=== PATIENT | male | born 1950 | race Caucasian/White ===

== ENCOUNTER 2019-01-05 17:27 | Inpatient (IN) | payer OTHER, MEDICARE ==
--- NOTE | 2019-01-05 17:39 | PDOC ---
Rapid Medical Evaluation Time Seen by Provider: 01/05/19 17:36 Medical Evaluation: Allergies Allergy/AdvReac Type Severity Reaction Status Date / Time Iodine and Iodide Containing Allergy Verified 12/29/18 14:18 Produc Vital Signs Temp Pulse Resp BP Pulse Ox 98.2 F 86 18 130/60 98 01/05/19 17:32 01/05/19 17:32 01/05/19 17:32 01/05/19 17:32 01/05/19 17:32 01/05/19 17:36 I have performed a brief in-person evaluation of this patient. The patient presents with a chief complaint of: ulcers to feet, sent by Dr. Fernandez, denies fever/vomiting/diarrhea Pertinent physical exam findings: b/l feet wrapped from podiatry I have ordered the following: x-rays, labs The patient will proceed to the ED for further evaluation. Discharge Disposition - Diagnosis Foot ulcer - Referrals - Patient Instructions - Post Discharge Activity
[2019-01-05] MEDS ORDERED: PIPERACILLIN/TAZOB 3.375 GM 3.375 GM in DEXTROSE 5%-WATER - 50 ML IVPB ONE (18:56)
[2019-01-05] MEDS ORDERED: VANCOMYCIN 1,000 MG in DEXTROSE 5%-WATER - 250 ML IVPB ONE (18:57)
--- NOTE | 2019-01-05 19:12 | PDOC ---
Documentation entered by Patrick Bejarano SCRIBE, acting as scribe for Lexi Mitchell MD. Lexi Mitchell MD: This documentation has been prepared by the semajibeDarci Daniel, SCRIBE, under my direction and personally reviewed by me in its entirety. I confirm that the documentation accurately reflects all work, treatment, procedures, and medical decision making performed by me. History of Present Illness - General Chief Complaint: Wound Stated Complaint: SENT BY PCP/PAIN Time Seen by Provider: 01/05/19 17:36 History Source: Patient Exam Limitations: No Limitations - History of Present Illness Initial Comments: 01/05/19 18:57 The patient is a 68 year old male with a past medical history of HTN, ESRD ( TuThSat dialysis), and peripheral vascular disease here today for evaluation of bilateral foot ulcers. The patient reports that he has been following with Dr. Fernandez for about 2 weeks and was sent in today for admission. Patient notes bilateral foot pain. Patient denies headache, lightheadedness. Denies fever, chills. Denies chest pain, shortness of breath. Denies nausea, vomiting, diarrhea, abdominal pain. Allergies: iodine and iodine containing products Surgical history: appendectomy, cholecystectomy, left AV fistula. PCP: Gadiel Bean Past History - Past Medical History Allergies/Adverse Reactions: Allergies Allergy/AdvReac Type Severity Reaction Status Date / Time Iodine and Iodide Containing Allergy Verified 01/05/19 17:36 Produc Home Medications: Ambulatory Orders Acetaminophen [Tylenol .Extra-Strength -] 3 tab PO TID PRN 12/29/18 Albuterol Sulfate Inhaler - [Ventolin HFA Inhaler -] 2 puff IH Q4H PRN 12/29/18 Alprazolam [Xanax] 1 mg PO HS 12/29/18 Aspirin [ASA -] 325 mg PO DAILY 12/29/18 Budesonide/Formeterol Fumarate [SYMBICORT 160/4.5mcg -] 2 puff IH Q4H PRN Calcitriol [Calcitriol -] 0.25 mg PO DAILY 12/29/18 Carvedilol [Coreg -] 12.5 mg PO BID 12/29/18 Gabapentin [Neurontin -] 300 mg PO DAILY 12/29/18 Isosorbide Mononitrate [Isosorbide Mononitrate ER] 30 mg PO DAILY 12/29/18 Naproxen Sodium [Aleve] 2 tab PO DAILY 12/29/18 Simvastatin 40 mg PO DAILY 12/29/18 Tamsulosin HCl [Flomax -] 0.4 mg PO BID 12/29/18 Ibuprofen 800 mg PO TID 10 Days #30 tablet 01/05/19 Asthma: Yes Cardiac Disorders: Yes (CT 2004) COPD: No CHF: Yes Diabetes: No HTN: Yes Hypercholesterolemia: Yes - Surgical History Appendectomy: Yes (Age 31) Cholecystectomy: Yes (2011) - Psycho Social/Smoking Cessation Hx Smoking History: Never smoked Have you smoked in the past 12 months: No Number of Cigarettes Smoked Daily: 10 If you are a former smoker, when did you quit?: 2013 Review of Systems - Review of Systems Able to Perform ROS?: Yes Comments:: 01/05/19 18:57 CONSTITUTIONAL: Absent: fever, chills, diaphoresis, generalized weakness, malaise, loss of appetite HEENT: Absent: rhinorrhea, nasal congestion, throat pain, throat swelling, difficulty swallowing, mouth swelling, ear pain, eye pain, visual Changes CARDIOVASCULAR: Absent: chest pain, syncope, palpitations, irregular heart rate, lightheadedness , peripheral edema RESPIRATORY: Absent: cough, shortness of breath, dyspnea with exertion, orthopnea, wheezing, stridor, hemoptysis GASTROINTESTINAL: Absent: abdominal pain, abdominal distension, nausea, vomiting, diarrhea, constipation, melena, hematochezia GENITOURINARY: Absent: dysuria, frequency, urgency, hesitancy, hematuria, flank pain, genital pain MUSCULOSKELETAL: Absent: myalgia, arthralgia, joint swelling SKIN: +bilateral foot ulcers and pain. Absent: rash, itching, pallor HEMATOLOGIC/IMMUNOLOGIC: Absent: easy bleeding, easy bruising, lymphadenopathy, frequent infections ENDOCRINE: Absent: unexplained weight gain, unexplained weight loss, heat intolerance, cold intolerance NEUROLOGIC: Absent: headache, focal weakness or paresthesias, dizziness, unsteady gait, seizure, mental status changes, bladder or bowel incontinence PSYCHIATRIC: Absent: anxiety, depression, suicidal or homicidal ideation, hallucinations. *Physical Exam - Vital Signs Last Vital Signs Temp Pulse Resp BP Pulse Ox 98.2 F 86 18 130/60 98 01/05/19 17:32 01/05/19 17:32 01/05/19 17:32 01/05/19 17:32 01/05/19 17:32 - Physical Exam Comments: 01/05/19 18:57 GENERAL: +slender Well developed. Awake and alert. No acute distress. HEENT: Normocephalic, atraumatic. PERRLA, EOMI. No conjunctival pallor. Sclera are non- icteric. Moist mucous membranes. Oropharynx is clear. NECK: Supple. Full ROM. No JVD. Carotid pulses 2+ and symmetric, without bruits. No thyromegaly. No lymphadenopathy. CARDIOVASCULAR: Regular rate and rhythm. No murmurs, rubs, or gallops. Distal pulses are 2+ and symmetric. PULMONARY: No evidence of respiratory distress. Lungs clear to auscultation bilaterally. No wheezing, rales or rhonchi. ABDOMINAL: Soft. Non-tender. Non-distended. No rebound or guarding. No organomegaly. Normoactive bowel sounds. MUSCULOSKELETAL Normal range of motion at all joints. No bony deformities or tenderness. No CVA tenderness. EXTREMITIES: + left AV fistula. + 2+ bilateral lower extremity edema. No cyanosis. No clubbing. No calf tenderness. SKIN: +bilateral foot cellulitis. +dorsal left foot ulceration. +infected right toes. Warm and dry. Normal capillary refill. No rashes. No jaundice. NEUROLOGICAL: Alert, awake, appropriate. Cranial nerves 2-12 intact. No deficits to light touch and temperature in face, upper extremities and lower extremities. No motor deficits in the in face, upper extremities and lower extremities. Normoreflexic in the upper and lower extremities. Normal speech. Toes are down- going bilaterally. Gait is normal without ataxia. PSYCHIATRIC: Cooperative. Good eye contact. Appropriate mood and affect. ED Treatment Course - LABORATORY CBC & Chemistry Diagram: 01/05/19 20:55 01/05/19 20:55 - RADIOLOGY Radiology Studies Ordered: Category Date Time Status CHEST X-RAY PORTABLE* [RAD] Stat Radiology 01/05/19 18:55 Ordered Medical Decision Making - Medical Decision Making 01/05/19 18:59 68-year-old male with a history of end-stage renal disease, hypertension , peripheral vascular disease was referred from [facility] for admission. He has bilateral cellulitis in both feet with an extensive ulceration on the big toe of his left foot and ulcers and erythema of his toes on his right foot. He is afebrile Dr. Fernandez for the wound care sent him in for admission Allergies no drug allergies Meds aspirin 81 mg, simvastatin 40 mg, Flomax 4 mg 2 times a day, gabapentin 300 mg daily, alprazolam 1 mg daily, isosorbide 30 mg daily, Coreg 12.52 daily , Ventolin 2 puffs every 4-6 hours as needed, Symbicort 2 puffs, twice daily, calcitriol once a day Tylenol as needed 01/05/19 19:[address] Fernandez has evaluated this patient for his right hallux gangrene and also his left foot arterial ulcers. He started seeing him earlier this month This patient has peripheral vascular disease and has had multiple revascularizations done by his vascular surgeon Dr. Fairbanks at [facility] 01/05/19 19:23 Dr Fernandez called and said that he would like Dr. Tommy Tse to be a product marketing consultant 01/05/19 22:46 Progress note on December [address] Bocanegra r states that he discussed the case with Dr. Tse and various options were presented to the patient. It is noted that he said patient will likely need amputation of the right hallux. They need to evaluate the peripheral vascular flow prior to any planned procedure. Consult placed with Dr. 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
[2019-01-05] MEDS ORDERED: PIPERACILLIN/TAZOB 3.375 GM 3.375 GM/50 ML BAG IVPB ONE (20:29)
[2019-01-05] MEDS ORDERED: ONDANSETRON 4 MG/2 ML VIAL ONE (20:38)
[2019-01-05 21:15] LABS: BASO % 1.3 % (0-2.0); EOS % 4.7 % (0-4.5); HEMATOCRIT 39.5 % (35.4-49); LYMPH % 14.4 % (8-40); MCH 32.8 pg (25.7-33.7); MCHC 32.8 g/dl (32.0-35.9); MEAN CELL VOLUME 99.9 fl (80-96); MEAN PLT VOLUME 9.3 fl (7.5-11.1); NEUT % 69.6 % (42.8-82.8); PLATELET COUNT 180 K/MM3 (134-434); RBC 3.96 M/mm3 (4.00-5.60); RDW 14.8 % (11.9-15.9); WHITE BLOOD COUNT 9.8 K/mm3 (4.0-10.0)
[2019-01-05] MEDS ORDERED: VANCOMYCIN 1 GRAM (PRE-DOCKED) 1,000 MG/250 ML BAG IVPB ONE (21:25)
[2019-01-05 21:49] LABS: ALBUMIN 3.5 g/dl (3.4-5.0); BILIRUBIN,TOTAL 0.6 mg/dL (0.2-1); BLOOD UREA NITROGEN 27.9 mg/dL (7-18); CALCIUM 10.7 mg/dL (8.5-10.1); CREATININE 7.1 mg/dL (0.55-1.3); POTASSIUM 4.7 mmol/L (3.5-5.1); TOT PROT 7.6 g/dl (6.4-8.2)
--- NOTE | 2019-01-05 22:19 | PN ---
Teaching Attending Note Name of Resident: Eliza Ayala ATTENDING PHYSICIAN STATEMENT I saw and evaluated the patient. I reviewed the resident's note and discussed the case with the resident. I agree with the resident's findings and plan as documented. SUBJECTIVE: Patient is a 68 year old man with a PMH of BPH, OR, PVD (s/p stents in legs), Appendectomy, Cholecystectomy, Osteomyelitis, HLD, HTN, ESRD (TuThSat hemodialysis), and Peripheral vascular disease here today for evaluation of bilateral foot ulcers. The patient reports that he has been following with Dr. Fernandez for about 2 weeks and was sent in today for admission. Patient notes bilateral foot pain. Patient denies headache, lightheadedness, fever, chills, chest pain, shortness of breath, nausea, vomiting, diarrhea or abdominal pain. No recent travels or sick contacts. Denies tobacco, alcohol or illicit drug use. FH of OR. OBJECTIVE: Alert Vital Signs Period Temp Pulse Resp BP Sys/Rodas Pulse Ox Last 24 Hr 98.2 F 86 18-18 130/60 98-98 HEENT: No Jaundice, eye redness or discharge, PERRLA, EOMI. Normocephalic, atraumatic. External ears are normal and hearing is grossly intact. No nasal discharge. Neck: Supple, nontender. No palpable adenopathy or thyromegaly. No JVD Chest: Right chest permacath. Good effort. Clear to auscultation and percussion. Heart: Regular. No S3 or rub; 2/6 LARA. Abdomen: Not distended, soft, nontender and no HSM. No rebound or guarding. Normal bowel sounds. Ext: Peripheral pulses intact. Left arm AV fistula with bruit and thrill. Leg edema. Right big toe gangrene. Gangrenous weeping ulcer on left big toe with surrounding erythema and warmth. Skin: Warm and dry. No petechiae, rash or ecchymosis. Neuro: Alert. Oriented x3. CN 2-12 grossly intact. Sensation grossly intact in all four extremities and DTR are symmetric. Psych: Appropriate mood and affect. Good insight. Home Medications Medication Instructions Recorded Acetaminophen [Tylenol 3 tab PO TID PRN 12/29/18 .Extra-Strength -] Albuterol Sulfate Inhaler - 2 puff IH Q4H PRN 12/29/18 [Ventolin HFA Inhaler -] Alprazolam [Xanax] 1 mg PO HS 12/29/18 Aspirin [ASA -] 325 mg PO DAILY 12/29/18 Budesonide/Formeterol Fumarate 2 puff IH Q4H PRN 12/29/18 [SYMBICORT 160/4.5mcg -] Calcitriol [Calcitriol -] 0.25 mg PO DAILY 12/29/18 Carvedilol [Coreg -] 12.5 mg PO BID 12/29/18 Gabapentin [Neurontin -] 300 mg PO DAILY 12/29/18 Isosorbide Mononitrate [Isosorbide 30 mg PO DAILY 12/29/18 Mononitrate ER] Naproxen Sodium [Aleve] 2 tab PO DAILY 12/29/18 Simvastatin 40 mg PO DAILY 12/29/18 Tamsulosin HCl [Flomax -] 0.4 mg PO BID 12/29/18 Ibuprofen 800 mg PO TID 10 Days #30 tablet 01/05/19 Abnormal Lab Results 01/05/19 01/05/19 01/05/19 20:55 20:55 20:55 RBC 3.96 L MCV 99.9 H Eosinophils % 4.7 H PTT (Actin FS) 39.4 H Chloride 96 L BUN 27.9 H Creatinine 7.1 H Calcium 10.7 H ASSESSMENT AND PLAN: 1. Foot ulcers and cellulitis - Wound cultures being sent and will treat with IV vancomycin. Consult Wound care and ID. Provide daily wound care. Get MRI to rule out osteomyelitis. EKG pending. CXR shows cardiomegaly and right chest permacath is in place. Will continue comprehensive care for all of patients comorbid conditions. 2. ESRD - Will consult nephrology to continue thrice weekly hemodialysis. Mild hypercalcemia may be iatrogenic - will hold Calcitriol and all vitamin d analogues. 3. Hypertension - Restart suitable outpatient antihypertensive drugs when clinically appropriate. Revise regimen to ensure [id number] excellent BP control and pet counselor patient on the injurious effects of uncontrolled hypertension. Nonpharmacologic measures to control hypertension like weight loss , salt restriction and exercise discussed. Importance of adherence to treatment regimen and attainment of normotension emphasized. 4. DVT prophylaxis - Heparin 5000u sq tid. 5. Advance directives - Full code
[2019-01-06] MEDS ORDERED: SODIUM CHLORIDE 1,000 ML IV SCH (01:45)
--- NOTE | 2019-01-06 03:21 | HP ---
CHIEF COMPLAINT: bilater foot ulcers PCP: Dr. Gadiel Bean HISTORY OF PRESENT ILLNESS: Pt is a 68 y/o M w/ pmhx of ESRD (10 years on dialysis, //), HTN, PVD, CHF (EF: 38%), and [place] (2004) presenting to ED complaining of worsening bilateral LE toe ulcers. Pt reports Dr. Fernandez, his new manager strategic, referred the patient to the ED for treatment of LE cellulitis and for a sitting MRI since patient cannot lay flat due to pain. Pt reports his ulcers first appeared about 6-8 months ago but have lately been getting worse. Pt saw his vascular surgeon at [place], Dr. Fairbanks, who applied dressings to the patients wounds 2 weeks ago. Per the pt, the vascular surgeon told him the wounds were healing and did not obtain any infectious workup or prescribe antibiotics. Pt reports there has been some serous fluid drainage from his ulcers and endorsed bilateral foot pain rated as 10/10. Pt uses a walker and wheelchair to ambulate. Pt denies fever, chills, JACKSON, SOB, changes in vision, N/V/D, chest pain , Abd pain, or urinary changes. Pt has a chronic history of lumbar spinal stenosis and endorses back pain. Pt has been on dialysis for past 10 years and he has an AV fistula on his left arm (brachio-cephalic?) and a temporary venous port on R side of chest. Pt reports he got the upper arm AV fistula in July after his L sided radiocephalic fistula failed. The new fistula has been used 4-5 times. Pt has had some itching and erythema around his fistula site. Pt went for dialysis Friday and his next session is . His dialysis sessions are 3.5 hrs. and he receives Heparin and Vitamin D during the session. ER course was notable for: (1) pip/tazo 3.375g (2) vanc 1000mg (3) CXR showing cardiomegaly and right chest permacath is in place. Recent Travel: denies PAST MEDICAL HISTORY: ESRD (10 years on dialysis), HTN, PVD, CHF (EF: 38%), and [place] (2004) PAST SURGICAL HISTORY: 4 stents, 2 in each leg (last one placed September 2018); venous port R side of chest Social History: Smoking: Tobacco: Quit in 2004 but smoked 2 cigarettes a day for 37 years Alcohol: occasionally drinks wine/ beer Drugs: none Occupation: Retired but used to work at [employer] Residence: Pt lives with his Fhx: Father: [place] ( at 59 y/o); Mother: none Allergies Contrast dye- makes his "chest feel tight" and skin itchy but reports he does ok with light contrast and Benadryl Iodine and Iodide Containing Produc Allergy (Verified 01/05/19 17:36) HOME MEDICATIONS: Home Medications Medication Instructions Recorded Acetaminophen [Tylenol 3 tab PO TID PRN 12/29/18 .Extra-Strength -] Albuterol Sulfate Inhaler - 2 puff IH Q4H PRN 12/29/18 [Ventolin HFA Inhaler -] Alprazolam [Xanax] 1 mg PO HS 12/29/18 Budesonide/Formeterol Fumarate 2 puff IH Q4H PRN 12/29/18 [SYMBICORT 160/4.5mcg -] Calcitriol [Calcitriol -] 0.25 mg PO DAILY 12/29/18 Carvedilol [Coreg -] 12.5 mg PO BID 12/29/18 Gabapentin [Neurontin -] 300 mg PO DAILY 12/29/18 Isosorbide Mononitrate [Isosorbide 30 mg PO DAILY 12/29/18 Mononitrate ER] Naproxen Sodium [Aleve] 2 tab PO DAILY 12/29/18 Simvastatin 40 mg PO DAILY 12/29/18 Tamsulosin HCl [Flomax -] 0.4 mg PO BID 12/29/18 Aspirin [ASA -] 81 mg PO DAILY 01/06/19 REVIEW OF SYSTEMS CONSTITUTIONAL: Absent: fever, chills, diaphoresis, generalized weakness, malaise, loss of appetite, weight change HEENT: Absent: rhinorrhea, nasal congestion, throat pain, throat swelling, difficulty swallowing, mouth swelling, ear pain, eye pain, visual changes CARDIOVASCULAR: Absent: chest pain, syncope, palpitations, irregular heart rate, lightheadedness , peripheral edema RESPIRATORY: Absent: cough, shortness of breath, dyspnea with exertion, orthopnea, wheezing, stridor, hemoptysis GASTROINTESTINAL: Absent: abdominal pain, abdominal distension, nausea, vomiting, diarrhea, constipation, melena, hematochezia GENITOURINARY: Absent: dysuria, frequency, urgency, hesitancy, hematuria, flank pain, genital pain MUSCULOSKELETAL: back pain Absent: myalgia, arthralgia, joint swelling,, neck pain SKIN: bilateral foot ulcers Absent: rash, itching, pallor HEMATOLOGIC/IMMUNOLOGIC: Absent: easy bleeding, easy bruising, lymphadenopathy, frequent infections ENDOCRINE: Absent: unexplained weight gain, unexplained weight loss, heat intolerance, cold intolerance NEUROLOGIC: paresthesias in bilateral LE Absent: headache, focal weakness or , dizziness, unsteady gait, seizure, mental status changes, bladder or bowel incontinence PSYCHIATRIC: Absent: anxiety, depression, suicidal or homicidal ideation, hallucinations. PHYSICAL EXAMINATION Vital Signs - 24 hr 01/05/19 01/05/19 01/06/19 17:32 22:13 00:25 Temperature 98.2 F Pulse Rate 86 Pulse Rate [ 88 Left Radial] Respiratory 18 18 17 Rate Blood Pressure 130/60 Blood Pressure 139/65 [Left Arm] O2 Sat by Pulse 98 98 Oximetry (%) 01/06/19 01:32 Temperature 97.8 F Pulse Rate 78 Pulse Rate [ Left Radial] Respiratory 18 Rate Blood Pressure 120/56 L Blood Pressure [Left Arm] O2 Sat by Pulse Oximetry (%) GENERAL: Awake, alert, and fully oriented, in no acute distress. HEAD: Normal with no signs of trauma. EYES: Pupils equal, round and reactive to light, extraocular movements intact, sclera anicteric, conjunctiva clear. No lid lag. EARS, NOSE, THROAT: Ears normal, nares patent, oropharynx clear without exudates. Moist mucous membranes. NECK: Normal range of motion, supple without lymphadenopathy, JVD, or masses. LUNGS: Breath sounds equal, clear to auscultation bilaterally. No wheezes, and no crackles. No accessory muscle use. HEART: Regular rate and rhythm, normal S1 and S2, systolic murmur @ L sternal border. Dialyis port at R chest, dressing is c/d/i ABDOMEN: Soft, nontender, not distended, normoactive bowel sounds, no guarding, no rebound, no masses. MUSCULOSKELETAL: Normal range of motion at all joints. No bony deformities or tenderness. No CVA tenderness. UPPER EXTREMITIES: 2+ pulses, warm, well-perfused. No cyanosis. No clubbing. No peripheral edema. AV fistula on LUE (brachio-cephalic?), palpable thrill, some erythema noted in the surrounding area with excoriations (pt attributes to medical tape) LOWER EXTREMITIES: 2+ pulses, warm, well-perfused. No calf tenderness. 1+ pitting edema LLE, trace pitting edema LLE. R foot with dry, necrotic looking ulcer on first toe. L foot with wet looking weeping ulcers near first toe and extending down between first and second toes. Erythema warmth and swelling to the dorsum of the left foot. NEUROLOGICAL: Cranial nerves II-XII intact. PSYCHIATRIC: Cooperative. Good eye contact. Appropriate mood and affect. SKIN: Warm, dry, normal turgor, skin findings as described above. Laboratory Results - last 24 hr 01/05/19 01/05/19 01/05/19 20:55 20:55 20:55 WBC 9.8 RBC 3.96 L Hgb 13.0 Hct 39.5 MCV 99.9 H MCH 32.8 MCHC 32.8 RDW 14.8 Plt Count 180 MPV 9.3 Absolute Neuts (auto) 6.8 Neutrophils % 69.6 Lymphocytes % 14.4 Monocytes % 10.0 Eosinophils % 4.7 H Basophils % 1.3 Nucleated RBC % 0 PTT (Actin FS) Sodium 136 Potassium 4.7 Chloride 96 L Carbon Dioxide 29 Anion Gap 11 BUN 27.9 H Creatinine 7.1 H Est GFR (CKD-EPI)AfAm 8.40 Est GFR (CKD-EPI)NonAf 7.25 Random Glucose 98 Lactic Acid 1.1 Calcium 10.7 H Total Bilirubin 0.6 AST 21 ALT 16 Alkaline Phosphatase 81 Total Protein 7.6 Albumin 3.5 01/05/19 20:55 WBC RBC Hgb Hct MCV MCH MCHC RDW Plt Count MPV Absolute Neuts (auto) Neutrophils % Lymphocytes % Monocytes % Eosinophils % Basophils % Nucleated RBC % PTT (Actin FS) 39.4 H Sodium Potassium Chloride Carbon Dioxide Anion Gap BUN Creatinine Est GFR (CKD-EPI)AfAm Est GFR (CKD-EPI)NonAf Random Glucose Lactic Acid Calcium Total Bilirubin AST ALT Alkaline Phosphatase Total Protein Albumin ASSESSMENT/PLAN: Pt is a 68 y/o M w/ pmhx of ESRD (10 years on dialysis, //), HTN, PVD, CHF (EF: 38%), and [place] (2004) presenting to ED complaining of worsening bilateral LE toe ulcers. # Foot ulcers and cellulitis - F/U wound cultures - IV vancomycin pending wound/ blood cx results - random vanc trough - Consult Wound care/ vascular surgery/ podiatry (Drs. Tse and Jim), appreciate recommendations - Consult ID (Dr. Retana), appreciate recommendations - Provide daily wound care - Get MRI to rule out osteomyelitis - EKG pending - type and screen, coags, EKG, and NPO for now incase pt is to go to OR for debridement or other procedure. # Hypercalcemia - mild, may be iatrogenic - hold Calcitriol and all vitamin d analogues. - f/u PTH # ESRD on HD () - consult nephrology, Dr. Turner, to continue () hemodialysis. - renal dosing for all medications # HTN - resume home meds when clinically appropriate # FEN - - replete PRN - NPO until eval by podiatry/ vascular sx, then Na controlled/ renal diet. # Ppx - DVT: SCDs until pt is evaluated by podiatry and vascular surgery and decision is made about whether pt needs to go to OR, then Heparin 5000u SQ TID #Dispo- admit to med-surg, full code Visit type - Emergency Visit Emergency Visit: Yes ED Registration Date: 01/05/19 Care time: The patient presented to the Emergency Department on the above date and was hospitalized for further evaluation of their emergent condition. - New Patient This patient is new to me today: Yes Date on this admission: 01/06/19 - Critical Care Critical Care patient: No ATTENDING PHYSICIAN STATEMENT I saw and evaluated the patient. I reviewed the resident's note and discussed the case with the resident. I agree with the resident's findings and plan as documented. SUBJECTIVE: OBJECTIVE: ASSESSMENT AND PLAN:
[2019-01-06 04:31] VITALS: BMI 22.8
[2019-01-06] MEDS ORDERED: HEPARIN NA (PORCINE) 5,000 UNITS/ML 1ML VIAL SQ SCH (06:00)
[2019-01-06] MEDS: HEPARIN NA (PORCINE) 5,000 UNITS/ML 1ML VIAL SQ SCH ×3 (06:00→22:15)
[2019-01-06] MEDS ORDERED: oxyCODONE HCL 5 MG TABLET PO PRN (07:50)
[2019-01-06 08:59] LABS: BASO % 0.9 % (0-2.0); EOS % 5.1 % (0-4.5); HEMATOCRIT 37.3 % (35.4-49); HEMOGLOBIN 12.3 GM/dL (11.7-16.9); LYMPH % 13.4 % (8-40); MCH 32.9 pg (25.7-33.7); MCHC 32.9 g/dl (32.0-35.9); MEAN CELL VOLUME 99.8 fl (80-96); MEAN PLT VOLUME 9.3 fl (7.5-11.1); MONO % 11.8 % (3.8-10.2); NEUT % 68.8 % (42.8-82.8); PLATELET COUNT 160 K/MM3 (134-434); RBC 3.74 M/mm3 (4.00-5.60); RDW 14.9 % (11.9-15.9); WHITE BLOOD COUNT 10.2 K/mm3 (4.0-10.0)
--- NOTE | 2019-01-06 09:06 | CONSULT ---
- Consultation REQUESTING PROVIDER: CONSULT REQUEST: We have been asked to surgically evaluate this patient for gangrene/pvd PCP:Magdiel Eldridge HISTORY OF PRESENT ILLNESS: 68 y/o M w/ pmhx ESRD (10 years on dialysis, // ), HTN, PVD s/p b/l le stent placement within the past year (followed by Dr Aaron Schwartz at [facility]), h/o MS (2004), and CHF sent for admission by Dr Fernandez for Le ulcers. Pt reports he has had le ulcers for the past 6-8 months , was followed by his Vascular surgeon who was doing dressing changes (pt unsure what dressings were applied) in the office up until 2 weeks ago when the ulcers worsened. Pt reports he sought out a DPM for specialty foot care. Has not had infectious workup or abx for ulcers. Endorses minimal serous fluid drainage from his ulcers and bilateral foot pain. Reports using a walker and wheelchair to ambulate over the past few weeks as his pain has worsened. Prior to that he was ambulating 1/2 block or less due to claudication. Pt reports recent placement of b/l le stents (?sfa) as well as close follow up and studies which reveal stents are open. Denies fever, chills, SOB, N/V/D, chest pain, rest pain. Of note, pt has been on dialysis for past 10 years and he has an AV fistula on his left arm (brachio-cephalic?) and a temporary venous port on R side of chest. Pt reports he got the upper arm AV fistula in July after his L sided radiocephalic fistula failed. At baseline, pt lives home with . 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 Ambulation is limited lately due to le pain. Quit smoking in 2004, reports he was a social smoker prior. PAST MEDICAL HISTORY: as above PAST SURGICAL HISTORY: 4 stents, 2 in each leg (last one placed September 2018); venous port R side of chest Social History: Smoking: Tobacco: Quit in 2004 but smoked 2 cigarettes a day for 37 years Alcohol: occasionally drinks wine/ beer Drugs: none Home Medications Medication Instructions Recorded Acetaminophen [Tylenol 1 tab PO Q8H PRN 12/29/18 .Extra-Strength -] Albuterol Sulfate Inhaler - 2 puff IH Q4H PRN 12/29/18 [Ventolin HFA Inhaler -] Alprazolam [Xanax] 1 mg PO HS 12/29/18 Budesonide/Formeterol Fumarate 2 puff IH BID PRN 12/29/18 [SYMBICORT 160/4.5mcg -] Calcitriol [Calcitriol -] 0.25 mg PO DAILY 12/29/18 Carvedilol [Coreg -] 12.5 mg PO BID 12/29/18 Gabapentin [Neurontin -] 300 mg PO DAILY 12/29/18 Isosorbide Mononitrate [Isosorbide 30 mg PO DAILY 12/29/18 Mononitrate ER] Naproxen Sodium [Aleve] 2 tab PO DAILY 12/29/18 Simvastatin 40 mg PO DAILY 12/29/18 Tamsulosin HCl [Flomax -] 0.4 mg PO BID 12/29/18 Aspirin [ASA -] 81 mg PO DAILY 01/06/19 Allergies Allergy/AdvReac Type Severity Reaction Status Date / Time Iodine and Iodide Containing Allergy Verified 01/05/19 17:36 Produc REVIEW OF SYSTEMS: CONSTITUTIONAL: Absent: fever, chills CARDIOVASCULAR: Absent: chest pain, syncope RESPIRATORY: Absent: cough, shortness of breath GASTROINTESTINAL: Absent: abdominal pain PHYSICAL EXAM: GENERAL: Awake, alert, and fully oriented, in no acute distress. HEAD: Normal with no signs of trauma. LOWER EXTREMITIES: R foot with approx 2.5x2.5cm eschar at medial aspect of great toe, no purulent drainage expressed. +maceration of skin at intertriginous spaces. L foot with approx 1.5x1.5cm dry eschar over dorsal surface of L toe, no erythema or drainage from wound. + edema and erythema over dorsum of b/l feet from met heads to just below ankle. +ttp over ulcers. Feet warm. 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 No dpa on L Vital Signs Temperature 98.6 F 01/06/19 06:52 Pulse Rate 79 01/06/19 06:52 Respiratory Rate 18 01/06/19 06:52 Blood Pressure 119/63 01/06/19 06:52 O2 Sat by Pulse Oximetry (%) 97 01/06/19 01:35 Lab Results WBC 10.2 K/mm3 (4.0-10.0) H 01/06/19 07:25 RBC 3.74 M/mm3 (4.00-5.60) L 01/06/19 07:25 Hgb 12.3 GM/dL (11.7-16.9) 01/06/19 07:25 Hct 37.3 % (35.4-49) 01/06/19 07:25 MCV 99.8 fl (80-96) H 01/06/19 07:25 MCHC 32.9 g/dl (32.0-35.9) 01/06/19 07:25 RDW 14.9 % (11.9-15.9) 01/06/19 07:25 Plt Count 160 K/MM3 (134-434) 01/06/19 07:25 Sodium 136 mmol/L (136-145) 01/05/19 20:55 Potassium 4.7 mmol/L (3.5-5.1) 01/05/19 20:55 Chloride 96 mmol/L (98-107) L 01/05/19 20:55 Carbon Dioxide 29 mmol/L (21-32) 01/05/19 20:55 Anion Gap 11 MMOL/L (8-16) 01/05/19 20:55 BUN 27.9 mg/dL (7-18) H 01/05/19 20:55 Creatinine 7.1 mg/dL (0.55-1.3) H 01/05/19 20:55 Random Glucose 98 mg/dL (74-106) 01/05/19 20:55 Calcium 10.7 mg/dL (8.5-10.1) H 01/05/19 20:55 A/P: 68 y/o M w/ pmhx ESRD (10 years on dialysis, //), HTN, PVD s/p b/l le stent placement within the past year (followed by Dr Aaron Schwartz at [facility]), h/o MS (2004), and CHF sent for admission by Dr Fernandez for Le ulcers. Pt with dry gangrene/cellulitis in setting of chronic gangrene, known PVD. Vascular consulted for evaluation. CTA recommended, pt refusing. Reports recent vascular imaging and cta at [facility]. States paperwork has been sent over (not in chart, primary team unaware of any faxed paperwork). -Primary team attempting to obtain paperwork from [facility] (need to see recent studies regarding le stents, anatomy/outflow) -Recommend Betadine solution to areas of gangrene, 4x4 gauze between toes -Continue ASA 81mg daily, pt not on Plavix, reports never taking it -Will follow -Care per primary team/podiatry jerry attending Dr Tse
[2019-01-06 09:17] LABS: INR 0.97 (0.83-1.09); PROTHROMBIN TIME (PATIENT) 11.5 SEC (9.7-13.0)
--- NOTE | 2019-01-06 09:20 | PN ---
Progress Note (short form) - Note Progress Note: ID consult dictated 68 yo man with ESRD on HD with PAD and chronic ischemic bilateral foot pain for months he is s/p multiple revascularization attempts with Dr Fairbanks (vascular)) reports at least 2 stents in each leg over last 3 years- most recently 6 weeks ago pain is unabated has dry gangrene of the right big toe and a shallow dry ulcer on the dorasl surface of the left foot both feet are cool no purulence or odor no prior antibiotics admitted for pain control and further vascular and podiatric evaluation-foot appears ischemic at this time with sequelae of dry gangrene and ischemic ulcer see no active infection at this time to continue antibiotics (got vanco/zosyn in ED)-hold further antiibiotics for now will d/w vascular and podiatry Problem List - Problems (1) PVD (peripheral vascular disease) Code(s): I73.9 - PERIPHERAL VASCULAR DISEASE, UNSPECIFIED (2) Gangrene of toe of right foot Code(s): I96 - GANGRENE, NOT ELSEWHERE CLASSIFIED (3) Foot ulcer, left Code(s): L97.529 - NON-PRESSURE CHRONIC ULCER OTH PRT LEFT FOOT W UNSP SEVERITY (4) ESRD (end stage renal disease) on dialysis Code(s): N18.6 - END STAGE RENAL DISEASE; Z99.2 - DEPENDENCE ON RENAL DIALYSIS
[2019-01-06] MEDS: ISOSORBIDE MONONITRATE 30 MG TAB.SR.24H (FP) PO SCH (09:23)
[2019-01-06] MEDS: CARVEDILOL 12.5 MG TABLET (FP) PO SCH ×2 (09:23→23:05)
[2019-01-06] MEDS: TAMSULOSIN HCL 0.4 MG CAP PO SCH ×2 (09:23→23:05)
[2019-01-06] MEDS ORDERED: ALPRAZolam 1 MG TABLET PO PRN (09:25)
[2019-01-06 09:36] LABS: ALBUMIN 3.2 g/dl (3.4-5.0); BILIRUBIN,TOTAL 0.6 mg/dL (0.2-1); BLOOD UREA NITROGEN 31.7 mg/dL (7-18); CALCIUM 10.6 mg/dL (8.5-10.1); MAGNESIUM 2.3 mg/dL (1.8-2.4); PHOSPHOROUS 5.6 mg/dL (2.5-4.9); POTASSIUM 4.7 mmol/L (3.5-5.1); TOT PROT 6.9 g/dl (6.4-8.2)
[2019-01-06 09:41] LABS: CREATININE 7.8 mg/dL (0.55-1.3)
[2019-01-06] MEDS: traMADol HCL 50 MG TABLET PO PRN ×2 (09:49→20:46)
[2019-01-06] MEDS: PROCHLORPERAZINE MALEATE 5 MG TABLET PO PRN ×2 (09:49→20:46)
[2019-01-06] MEDS ORDERED: CALCITRIOL 0.25 MCG CAPSULE (FP) PO SCH (10:00)
[2019-01-06] MEDS ORDERED: VANCOMYCIN 1 GM in D5W (PRE-DOCKED) 1,000 MG/250 ML IVPB SCH (10:00)
[2019-01-06] MEDS ORDERED: morphine SULFATE 4 MG/ML VIAL IVPUSH ONE (10:38)
[2019-01-06] MEDS ORDERED: SODIUM CHLORIDE 250 ML IV PRN (11:50)
--- NOTE | 2019-01-06 11:51 | CONSULT ---
Consultation: REQUESTING PROVIDER: Dr Carlos CONSULT REQUEST: We have been asked to medically evaluate this patient for ESRD. HISTORY OF PRESENT ILLNESS: Pt. is a 68 y.o. M w/ PMHx. of ESRD( ,,) HTN, PVD, CHF (EF 38%) and MS in 2004 presents for non-healing and worsening foot ulcer. Pt. 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 Pt. recently had LUE AV Fistula placed ~3months ago and has used that site as his access site only a few times. He has a R. Chest venous port and is requesting that we use that site for his HD. Pt. also has a non-functioning distal LUE fistula. Pt. endorses b/l lower extremity pain from his feet that Percocet has not helped. Pt. states that he recently had his LLE evaluated by Dr. Fairbanks in [place] and that states that he still has good blood flow. Pt. states that he was not recently on any antibiotics. Pt. endorses compliance with all his medications. Pt. denies any shortness of breath, fever, chills, or any changes in urination or bowel habits. REVIEW OF SYSTEMS: As above PHYSICAL EXAMINATION Vital Signs - 24 hr 01/05/19 01/05/19 01/06/19 17:32 22:13 00:25 Temperature 98.2 F Pulse Rate 86 Pulse Rate [ 88 Left Radial] Respiratory 18 18 17 Rate Blood Pressure 130/60 Blood Pressure 139/65 [Left Arm] O2 Sat by Pulse 98 98 Oximetry (%) 01/06/19 01/06/19 01/06/19 01:30 01:32 01:35 Temperature 97.8 F 97.8 F Pulse Rate 78 78 Pulse Rate [ Left Radial] Respiratory 18 18 Rate Blood Pressure 120/56 L 120/56 L Blood Pressure [Left Arm] O2 Sat by Pulse 97 Oximetry (%) 01/06/19 01/06/19 06:52 09:22 Temperature 98.6 F 98.3 F Pulse Rate 79 89 Pulse Rate [ Left Radial] Respiratory 18 20 Rate Blood Pressure 119/63 144/73 Blood Pressure [Left Arm] O2 Sat by Pulse Oximetry (%) GENERAL: Awake, alert, and fully oriented, in mild distress 2/2 lower extremity pain. HEAD: Normal with no signs of trauma. EYES: Extraocular movements intact, sclera anicteric, conjunctiva clear. EARS, NOSE, THROAT: Ears normal, nares patent, oropharynx clear without exudates. Moist mucous membranes. NECK: Normal range of motion, supple without lymphadenopathy, JVD, or masses. LUNGS: Breath sounds equal, clear to auscultation bilaterally. No wheezes, and no crackles. No accessory muscle use. HEART: Regular rate and rhythm, normal S1 and S2 without murmur ABDOMEN: Soft, nontender, not distended, normoactive bowel sounds, no guarding, no rebound, no masses. MUSCULOSKELETAL: Normal range of motion at all joints. No bony deformities or tenderness. No CVA tenderness. R anterior chest port UPPER EXTREMITIES: 2+ pulses, warm, well-perfused. No cyanosis. No clubbing. No peripheral edema. LUE AVF both proximal an distal. Frills and thrills present on proximal. LOWER EXTREMITIES: 1+ dorsal pedal pulses, warm, well-perfused. No calf tenderness. 1+ edema, tender to palpation. RLE eschar on medial aspect of great toe; LLE dryness, swelling, tenderness to palpation on dorsum xerosis with ?necrosis of NEUROLOGICAL: Cranial nerves II-XII grossly intact. Normal speech. PSYCHIATRIC: Cooperative. Good eye contact. Appropriate mood and affect. SKIN: Warm, dry, normal turgor Laboratory Results - last 24 hr 01/05/19 01/05/19 01/05/19 20:55 20:55 20:55 WBC 9.8 RBC 3.96 L Hgb 13.0 Hct 39.5 MCV 99.9 H MCH 32.8 MCHC 32.8 RDW 14.8 Plt Count 180 MPV 9.3 Absolute Neuts (auto) 6.8 Neutrophils % 69.6 Lymphocytes % 14.4 Monocytes % 10.0 Eosinophils % 4.7 H Basophils % 1.3 Nucleated RBC % 0 ESR PT with INR INR PTT (Actin FS) Sodium 136 Potassium 4.7 Chloride 96 L Carbon Dioxide 29 Anion Gap 11 BUN 27.9 H Creatinine 7.1 H Est GFR (CKD-EPI)AfAm 8.40 Est GFR (CKD-EPI)NonAf 7.25 Random Glucose 98 Lactic Acid 1.1 Calcium 10.7 H Phosphorus Magnesium Total Bilirubin 0.6 AST 21 ALT 16 Alkaline Phosphatase 81 C-Reactive Protein Total Protein 7.6 Albumin 3.5 Blood Type Antibody Screen 01/05/19 01/05/19 01/06/19 20:55 20:55 07:25 WBC 10.2 H RBC 3.74 L Hgb 12.3 Hct 37.3 MCV 99.8 H MCH 32.9 MCHC 32.9 RDW 14.9 Plt Count 160 MPV 9.3 Absolute Neuts (auto) 7.0 Neutrophils % 68.8 Lymphocytes % 13.4 Monocytes % 11.8 H Eosinophils % 5.1 H Basophils % 0.9 Nucleated RBC % 0 ESR PT with INR INR PTT (Actin FS) 39.4 H Sodium Potassium Chloride Carbon Dioxide Anion Gap BUN Creatinine Est GFR (CKD-EPI)AfAm Est GFR (CKD-EPI)NonAf Random Glucose Lactic Acid Calcium Phosphorus Magnesium Total Bilirubin AST ALT Alkaline Phosphatase C-Reactive Protein Total Protein Albumin Blood Type O POSITIVE Antibody Screen 01/06/19 01/06/19 01/06/19 07:25 07:25 07:25 WBC RBC Hgb Hct MCV MCH MCHC RDW Plt Count MPV Absolute Neuts (auto) Neutrophils % Lymphocytes % Monocytes % Eosinophils % Basophils % Nucleated RBC % ESR PT with INR 11.50 INR 0.97 PTT (Actin FS) Sodium 136 Potassium 4.7 Chloride 97 L Carbon Dioxide 31 Anion Gap 7 L BUN 31.7 H Creatinine 7.8 H* Est GFR (CKD-EPI)AfAm 7.50 Est GFR (CKD-EPI)NonAf 6.47 Random Glucose 71 L Lactic Acid Calcium 10.6 H Phosphorus 5.6 H Magnesium 2.3 Total Bilirubin 0.6 AST 11 L ALT 12 L Alkaline Phosphatase 67 C-Reactive Protein 2.0 H Total Protein 6.9 Albumin 3.2 L Blood Type O POSITIVE Antibody Screen Negative 01/06/19 10:00 WBC RBC Hgb Hct MCV MCH MCHC RDW Plt Count MPV Absolute Neuts (auto) Neutrophils % Lymphocytes % Monocytes % Eosinophils % Basophils % Nucleated RBC % ESR 36 H PT with INR INR PTT (Actin FS) Sodium Potassium Chloride Carbon Dioxide Anion Gap BUN Creatinine Est GFR (CKD-EPI)AfAm Est GFR (CKD-EPI)NonAf Random Glucose Lactic Acid Calcium Phosphorus Magnesium Total Bilirubin AST ALT Alkaline Phosphatase C-Reactive Protein Total Protein Albumin Blood Type Antibody Screen Active Medications Home Medications Medication Instructions Recorded Acetaminophen [Tylenol 1 tab PO Q8H PRN 12/29/18 .Extra-Strength -] Albuterol Sulfate Inhaler - 2 puff IH Q4H PRN 12/29/18 [Ventolin HFA Inhaler -] Alprazolam [Xanax] 1 mg PO HS 12/29/18 Budesonide/Formeterol Fumarate 2 puff IH BID PRN 12/29/18 [SYMBICORT 160/4.5mcg -] Calcitriol [Calcitriol -] 0.25 mg PO DAILY 12/29/18 Carvedilol [Coreg -] 12.5 mg PO BID 12/29/18 Gabapentin [Neurontin -] 300 mg PO DAILY 12/29/18 Isosorbide Mononitrate [Isosorbide 30 mg PO DAILY 12/29/18 Mononitrate ER] Naproxen Sodium [Aleve] 2 tab PO DAILY 12/29/18 Simvastatin 40 mg PO DAILY 12/29/18 Tamsulosin HCl [Flomax -] 0.4 mg PO BID 12/29/18 Aspirin [ASA -] 81 mg PO DAILY 01/06/19 Current Medications Acetaminophen (Tylenol -) 650 mg PO Q6H PRN PRN Reason: Fever Or Pain Alprazolam (Xanax) 1 mg PO ONCE PRN PRN Reason: ANXIETY Stop: 01/07/19 09:24 Carvedilol (Coreg -) 12.5 mg PO BID [facility] Last Admin: 01/06/19 09:23 Dose: 12.5 mg Heparin Sodium (Porcine) (Heparin -) 5,000 unit SQ TID [facility] Last Admin: 01/06/19 06:00 Dose: Not Given Isosorbide Mononitrate (Imdur -) 30 mg PO DAILY [facility] Last Admin: 01/06/19 09:23 Dose: 30 mg Prochlorperazine Maleate (Compazine -) 5 mg PO Q4H PRN PRN Reason: NAUSEA AND/OR VOMITING Last Admin: 01/06/19 09:49 Dose: 5 mg Tamsulosin HCl (Flomax -) 0.4 mg PO BID@0830,2200 [facility] Last Admin: 01/06/19 09:23 Dose: 0.4 mg Tramadol HCl (Ultram -) 50 mg PO Q6H PRN PRN Reason: PAIN LEVEL 6-10 Last Admin: 01/06/19 09:49 Dose: 50 mg ASSESSMENT/PLAN: Pt. is a 68 y.o. M w/ PMHx. of ESRD( ,,) HTN, PVD, CHF (EF 38%) and MS in 2004 presents for non-healing and worsening foot ulcer. #ESRD c/w HD on Sat. Pt had HD on Friday, next due tomorrow, will used R. venous port for access Pt. has Hypercalcemia to 10.7, f/u PTH intact c/w Coreg and Imdur for BP control and CHF monitor BMP Dispo: We will continue to follow the patient. Thank you for this consultative opportunity. ATTENDING PHYSICIAN STATEMENT I saw and evaluated the patient. I reviewed the resident's note and discussed the case with the resident. I agree with the resident's findings and plan as documented. SUBJECTIVE: OBJECTIVE: ASSESSMENT AND PLAN:
--- NOTE | 2019-01-06 13:35 | PN ---
Teaching Attending Note Name of Resident: Gadiel Lea (Nephrology) ATTENDING PHYSICIAN STATEMENT I saw and evaluated the patient. I reviewed the resident's note and discussed the case with the resident. I agree with the resident's findings and plan as documented. Renal Pt is a 68 year old male with pmhx of esrd (TTH), htn, chf and pvd who presents for lower ext pain. He denies shortness of breath. He was sent in from wound care. He follows with Dr Ellis. I called and discussed his care with her. pmhx esrd chf htn pvf pshx av fistula allergies iodine family hx denies social hx denies Current Medications Generic Name Dose Route Start Last Admin Trade Name Freq PRN Reason Stop Dose Admin Acetaminophen 650 mg 01/06/19 05:54 01/06/19 14:41 Tylenol - PO 650 mg Q6H PRN Administration Fever Or Pain Alprazolam 1 mg 01/06/19 09:25 Xanax PO 01/07/19 09:24 ONCE PRN ANXIETY Carvedilol 12.5 mg 01/06/19 10:00 01/06/19 09:23 Coreg - PO 12.5 mg BID MIGUEL Administration Heparin Sodium (Porcine) 5,000 unit 01/06/19 06:00 01/06/19 14:45 Heparin - SQ Not Given TID MIGUEL Isosorbide Mononitrate 30 mg 01/06/19 10:00 01/06/19 09:23 Imdur - PO 30 mg DAILY MIGUEL Administration Nystatin 1 applic 01/06/19 22:00 Mycostatin Cream - TP BID MIGUEL Prochlorperazine Maleate 5 mg 01/06/19 07:51 01/06/19 09:49 Compazine - PO 5 mg Q4H PRN Administration NAUSEA AND/OR VOMITING Tamsulosin HCl 0.4 mg 01/06/19 08:45 01/06/19 09:23 Flomax - PO 0.4 mg BID@0830,2200 MIGUEL Administration Tramadol HCl 50 mg 01/06/19 07:51 01/06/19 09:49 Ultram - PO 50 mg Q6H PRN Administration PAIN LEVEL 6-10 Last Vital Signs Temp Pulse Resp BP Pulse Ox 98.5 F 84 20 88/56 L 97 01/06/19 14:00 01/06/19 14:00 01/06/19 14:00 01/06/19 14:00 01/06/19 01:35 cardio s1s2 reg pulm clear GI soft ext plus 1 edema bilateral lower ext ulcers Impression 1. esrd 2. htn 3. pvd 4. chf 5. lower ext ulcers Plan - HD tomorrow - pt requests for catheter to be used - he also wants 3 hrs instead of 3.5 hrs - vascular eval - 3.5 abf 400, revaclear 300 2 k calcium heparin 1000 bolus SRD( ,,) HTN, PVD, CHF (EF 38%) and TX
[2019-01-06] MEDS: ACETAMINOPHEN 325 MG TABLET (FP) PO PRN (14:41)
--- NOTE | 2019-01-06 15:48 | PN ---
Teaching Attending Note Name of Resident: Leslie Refugio ATTENDING PHYSICIAN STATEMENT I saw and evaluated the patient. I reviewed the resident's note and discussed the case with the resident. I agree with the resident's findings and plan as documented. SUBJECTIVE: No fever or chills. reports pain in both feet 11/10 x 6 months . ulcers on L foot with hart drainage. reports L foot erythema is cl imbing up ( can't specify time ) , to ID he stated his feet looked the same with no change) . R foot big toe under skin white color is new per him . No SOB OBJECTIVE: NAD , awake, alert, cooperative CV: RRR, 3/6 LSB murmur. Lungs: CTAB Ext : DP is not palpable on both sides . R big toe with eschar on tip of the toe and whitish doscoloration under skin in area around the base of the nail bed. L foot with erythema on dorsum, and an ulcer on dorsal of big toe. 1+ pitting edema on legs skin: R upper chest catheter with intact skin ASSESSMENT AND PLAN: 68 y/o man with h/o ESRD, OM, PVD s/p stenting in both legs , GERD, HTN, HLP, [place], appendectomy, CCY and BPH and other medical problems who presented with persistent pain in feet and non healing ulcers. 1- B/l feet ulcers. likely vascular ulcers due to poor circulation. questionable infection in feet. - will d/w dr. Fernandez if the R toe findings are new - case was d/w Dr. Retana . - DP was dopplerable bilaterally by surgical PA. - Case d/w Surgical veronica, trial to contact Dr. Schwartz his vascular - records to be requested . 2- H/o ESRD: due to HD tomorrow - elevated ca level. hold cCalcitriol - PTH pending - DC IVF 3- h/o HTn: cont coreg and imdur meds to be confirmed 4- DVT Px : heparin SQ
--- NOTE | 2019-01-06 16:32 | CONS ---
INFECTIOUS DISEASE CONSULTATION DATE OF CONSULTATION: DATE OF DICTATION: 01/06/2019 REQUESTED BY: The hospitalist service. HISTORY OF PRESENT ILLNESS: This is a 68-year-old man who is followed by a vascular surgeon at [place]. He has had multiple stents, he reports, to both his legs for the last 3 years and he has been troubled by bilateral leg pain which has been unremitting. He self-referred himself to our wound care clinic to see one of the podiatrists. He has a long-standing dry gangrene of the right big toe of his right foot and he has a left arterial ulcer of the left leg. His most recent angioplasty and stent, he reports, was 6 weeks ago for the right leg. He has a history of dialysis. He has been on dialysis for 10 years, originally via a fistula in his left forearm. He now has a fistula in his left upper arm, as well as a PermCath. He denies any fevers or chills and he notes he has chronic pain. He appears quite frustrated due to the pain. He has no drainage from his feet which have no odor. ALLERGIES: He is allergic to IODINE. PAST MEDICAL HISTORY: Notable for dialysis; hypertension, but he states he no longer takes medicine for the high blood pressure; peripheral vascular disease; congestive heart failure; and he is status post MN. He has a history of cardiomyopathy and a prior bladder fistula. SURGICAL HISTORY: Notable for the stents in his leg. He has a PermCath. He is status post appendectomy and cholecystectomy in the past and he has had multiple angioplasties to both his legs. SOCIAL HISTORY: He is a former smoker; quit in 2004. Occasional wine or beer. No substance use. 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 FAMILY HISTORY: Notable for coronary artery disease. MEDICATIONS AT HOME: Include albuterol inhaler, Xanax, Symbicort, Coreg, Neurontin, isosorbide, Aleve, simvastatin, Flomax, and aspirin. REVIEW OF SYSTEMS: There are no fevers or chills. He notes the chronic pain in his feet, as well as the chronic ulcers on his feet. PHYSICAL EXAMINATION: General: He is awake and alert. Vital Signs: Temperature is 98.3, pulse of 89, blood pressure 144/73, his respiratory rate is 20. He weighs 70 kg. HEENT: He is normocephalic. His eyes are anicteric. Neck: Supple. Lungs: Clear to auscultation. Heart: Regular rate and rhythm. Abdomen: Soft. Nontender. Extremities: Cool. He has dry gangrene of the big toe of his right foot. He has a shallow ischemic ulcer without any drainage on the dorsum of his left foot. There is no associated erythema. In fact, both his feet are cool. I cannot feel any pulses. There is no purulence and there is no odor. He has not been on antibiotics as an outpatient. LABORATORY DATA: White count is 10.2, hemoglobin 12.3, platelets are 160. His sedimentation rate is 36. His BUN is 31 and creatinine 7.8 with a CRP of 3. Cultures are pending of his blood and of the dorsum of his foot though he has no drainage. X-rays of his foot were done in the emergency room. Right foot shows vascular calcification and some arthritic changes in the left foot. In summary, this is a 68-year-old man, admitted for pain control and further vascular and podiatric evaluation of his feet. They appear ischemic at this time with sequelae of dry gangrene and the ischemic ulcer. I see no active infection, at this time, to continue antibiotics. He received vancomycin and Zosyn in the ER. Would hold further antibiotics for now. Case was discussed with Podiatry who has spoken with Vascular to further evaluate the patient. As well, they are reaching out to his vascular surgeon. NITO FAITH M.D. [id number]
--- NOTE | 2019-01-06 16:50 | CONSULT ---
Consult Consult Specialty:: PODIATRY Reason for Consultation:: b/l gangrenous changes R > L - History of Present Illness Chief Complaint: 68 y/o male with Right foot worsening gangrene. History of Present Illness: Seen and evaluated. Patient has a history of multiple stent placemetn in legs due to severe impairment of blood flow. Patient was being seen by my partner Dr. Fernandez and was sent into the hospital for right hallux gangrene although he also has changes to left hallux as well. Patient very irritable and is continously asking for pain medication during exam. States he had all records faxed over although is unsure what a CTA is. States anything to be done has to be cleared by his other vascular surgeon in the city. - Alcohol/Substance Use Hx Alcohol Use: No - Smoking History Smoking history: Never smoked Have you smoked in the past 12 months: No Aproximately how many cigarettes per day: 10 If you are a former smoker, when did you quit?: 2013 Home Medications - Allergies Allergies/Adverse Reactions: Allergies Allergy/AdvReac Type Severity Reaction Status Date / Time Iodine and Iodide Containing Allergy Verified 01/05/19 17:36 Produc - Home Medications Home Medications: Ambulatory Orders Acetaminophen [Tylenol .Extra-Strength -] 1 tab PO Q8H PRN 12/29/18 Albuterol Sulfate Inhaler - [Ventolin HFA Inhaler -] 2 puff IH Q4H PRN 12/29/18 Alprazolam [Xanax] 1 mg PO HS 12/29/18 Budesonide/Formeterol Fumarate [SYMBICORT 160/4.5mcg -] 2 puff IH BID PRN Calcitriol [Calcitriol -] 0.25 mg PO DAILY 12/29/18 Carvedilol [Coreg -] 12.5 mg PO BID 12/29/18 Gabapentin [Neurontin -] 300 mg PO DAILY 12/29/18 Isosorbide Mononitrate [Isosorbide Mononitrate ER] 30 mg PO DAILY 12/29/18 Naproxen Sodium [Aleve] 2 tab PO DAILY 12/29/18 Simvastatin 40 mg PO DAILY 12/29/18 Tamsulosin HCl [Flomax -] 0.4 mg PO BID 12/29/18 Aspirin [ASA -] 81 mg PO DAILY 01/06/19 Review of Systems - Review of Systems Integumentary: reports: Bruising, Change in Color (DP/PT non palapbe bl, gross discoloration in feet b/l, right hallux with bluish tint throughout and gangrenous changes dorsally on the foot, no drainage, no erythema, left foot with erythema dorsally and mild gangrenous changes to the hallux of left as well , mild serous drainage noted in 1st interspace, pain on palpation b/l) Physical Exam Vital Signs: Vital Signs Temperature 98.5 F 01/06/19 14:00 Pulse Rate 84 01/06/19 14:00 Respiratory Rate 20 01/06/19 14:00 Blood Pressure 88/56 L 01/06/19 14:00 O2 Sat by Pulse Oximetry (%) 97 01/06/19 01:35 Labs: CBC, BMP 01/06/19 07:25 01/06/19 07:25 Assessment/Plan 68 y/o male with PAD with b/l gangrenous changes with most severe being right hallux. Evaluated and reviewed Patient constantly asking for percocet during exam even though had Morphine earlier which did not help; appears with drug seeking behavior will have nurse reach out to hospitalist for pain control although would be wary to give too much Patient refusing CTA per vascular although upon discussion and explanation of the test patient does not know if it was done Says all information was faxed over, but nothing received Worsening gangrene and would need amputation but I am highly doubtful patient will allow for such amputation to happen after discussion with patient although complete work up should be done and recommendation made after Will likely require new CTA and then if flow is established can discuss amputation with the patient He demands all testing be cleared by his vascular surgeon prior Will follow betadine DSD to the wounds.
--- NOTE | 2019-01-06 18:11 | PN ---
Physical Exam: SUBJECTIVE: Patient seen and examined 68 M w/ pmhx of ESRD (10 years on dialysis, //), HTN, PVD, CHF (EF: 38%), ND presented w/ worsening bilateral LE toe ulcers, worse on the left than the right. Currently, pt has pain and difficult walking on his leg. Pt is able to move his toes and legs but is very sensitive to touch. Pt is afebrile and has no other c/o. Denies f/c/n/v/d/sob/chest pain. OBJECTIVE: Vital Signs Period Temp Pulse Resp BP Sys/Rodas Pulse Ox Last 24 Hr 97.8 F-98.6 F 78-89 17-20 88-144/56-73 97-98 GENERAL: The patient is awake, alert, and fully oriented, in no acute distress. EYES: PERRL, extraocular movements intact, ENT: Eoropharynx clear without exudates, moist mucous membranes. NECK: full range of motion, supple. LUNGS: Breath sounds equal, clear to auscultation bilaterally, no wheezes, no crackles HEART: Regular rate and rhythm, S1, S2 without murmur, rub or gallop. ABDOMEN: Soft, nontender, nondistended, normoactive bowel sounds, no guarding, EXTREMITIES: 2+ pulses, warm, well-perfused, no edema. LLE: swollen, warm, erythematous, appears to have pus drainage. RLE necrotic looking ulcer/eshcar on first toe. UE: Left side has the fistula for dialysis. Right chest has a dialysis port. NEUROLOGICAL: Cranial nerves II through XII grossly intact. PSYCH: Normal mood, normal affect. SKIN: Warm, Laboratory Results - last 24 hr CBC,CMP WBC 10.2 K/mm3 (4.0-10.0) H 01/06/19 07:25 RBC 3.74 M/mm3 (4.00-5.60) L 01/06/19 07:25 Hgb 12.3 GM/dL (11.7-16.9) 01/06/19 07:25 Hct 37.3 % (35.4-49) 01/06/19 07:25 MCV 99.8 fl (80-96) H 01/06/19 07:25 MCH 32.9 pg (25.7-33.7) 01/06/19 07:25 MCHC 32.9 g/dl (32.0-35.9) 01/06/19 07:25 RDW 14.9 % (11.9-15.9) 01/06/19 07:25 Plt Count 160 K/MM3 (134-434) 01/06/19 07:25 MPV 9.3 fl (7.5-11.1) 01/06/19 07:25 Absolute Neuts (auto) 7.0 K/mm3 (1.5-8.0) 01/06/19 07:25 Neutrophils % 68.8 % (42.8-82.8) 01/06/19 07:25 Lymphocytes % 13.4 % (8-40) 01/06/19 07:25 Monocytes % 11.8 % (3.8-10.2) H 01/06/19 07:25 Eosinophils % 5.1 % (0-4.5) H 01/06/19 07:25 Basophils % 0.9 % (0-2.0) 01/06/19 07:25 Nucleated RBC % 0 % (0-0) 01/06/19 07:25 ESR 36 mm/hr (0-20) H 01/06/19 10:00 Sodium 136 mmol/L (136-145) 01/06/19 07:25 Potassium 4.7 mmol/L (3.5-5.1) 01/06/19 07:25 Chloride 97 mmol/L (98-107) L 01/06/19 07:25 Carbon Dioxide 31 mmol/L (21-32) 01/06/19 07:25 Anion Gap 7 MMOL/L (8-16) L 01/06/19 07:25 BUN 31.7 mg/dL (7-18) H 01/06/19 07:25 Creatinine 7.8 mg/dL (0.55-1.3) H* 01/06/19 07:25 Est GFR (CKD-EPI)AfAm 7.50 01/06/19 07:25 Est GFR (CKD-EPI)NonAf 6.47 01/06/19 07:25 Random Glucose 71 mg/dL (74-106) L 01/06/19 07:25 Lactic Acid 1.1 mmol/L (0.4-2.0) 01/05/19 20:55 Calcium 10.6 mg/dL (8.5-10.1) H 01/06/19 07:25 Phosphorus 5.6 mg/dL (2.5-4.9) H 01/06/19 07:25 Magnesium 2.3 mg/dL (1.8-2.4) 01/06/19 07:25 Total Bilirubin 0.6 mg/dL (0.2-1) 01/06/19 07:25 AST 11 U/L (15-37) L 01/06/19 07:25 ALT 12 U/L (13-61) L 01/06/19 07:25 Alkaline Phosphatase 67 U/L (45-117) 01/06/19 07:25 C-Reactive Protein 2.0 MG/DL (0.00-0.3) H 01/06/19 07:25 Total Protein 6.9 g/dl (6.4-8.2) 01/06/19 07:25 Albumin 3.2 g/dl (3.4-5.0) L 01/06/19 07:25 Active Medications Current Medications Acetaminophen (Tylenol -) 650 mg PO Q6H PRN PRN Reason: Fever Or Pain Last Admin: 01/06/19 14:41 Dose: 650 mg Alprazolam (Xanax) 1 mg PO ONCE PRN PRN Reason: ANXIETY Stop: 01/07/19 09:24 Carvedilol (Coreg -) 12.5 mg PO BID [facility] Last Admin: 01/06/19 09:23 Dose: 12.5 mg Heparin Sodium (Porcine) (Heparin -) 5,000 unit SQ TID [facility] Last Admin: 01/06/19 14:45 Dose: Not Given Heparin Sodium (Porcine) (Heparin -) 1,000 unit IVPUSH ONCE ONE Stop: 01/07/19 16:48 Sodium Chloride (Normal Saline -) 250 mls @ 3,000 mls/hr IV PRN PRN PRN Reason: Hypotension during Dialysis Stop: 01/07/19 16:47 Isosorbide Mononitrate (Imdur -) 30 mg PO DAILY [facility] Last Admin: 01/06/19 09:23 Dose: 30 mg Nystatin (Mycostatin Cream -) 1 applic TP BID [facility] Prochlorperazine Maleate (Compazine -) 5 mg PO Q4H PRN PRN Reason: NAUSEA AND/OR VOMITING Last Admin: 01/06/19 09:49 Dose: 5 mg Tamsulosin HCl (Flomax -) 0.4 mg PO BID@0830,2200 [facility] Last Admin: 01/06/19 09:23 Dose: 0.4 mg Tramadol HCl (Ultram -) 50 mg PO Q6H PRN PRN Reason: PAIN LEVEL 6-10 Last Admin: 01/06/19 09:49 Dose: 50 mg Home Medications Medication Instructions Recorded Acetaminophen [Tylenol 1 tab PO Q8H PRN 12/29/18 .Extra-Strength -] Albuterol Sulfate Inhaler - 2 puff IH Q4H PRN 12/29/18 [Ventolin HFA Inhaler -] Alprazolam [Xanax] 1 mg PO HS 12/29/18 Budesonide/Formeterol Fumarate 2 puff IH BID PRN 12/29/18 [SYMBICORT 160/4.5mcg -] Calcitriol [Calcitriol -] 0.25 mg PO DAILY 12/29/18 Carvedilol [Coreg -] 12.5 mg PO BID 12/29/18 Gabapentin [Neurontin -] 300 mg PO DAILY 12/29/18 Isosorbide Mononitrate [Isosorbide 30 mg PO DAILY 12/29/18 Mononitrate ER] Naproxen Sodium [Aleve] 2 tab PO DAILY 12/29/18 Simvastatin 40 mg PO DAILY 12/29/18 Tamsulosin HCl [Flomax -] 0.4 mg PO BID 12/29/18 Aspirin [ASA -] 81 mg PO DAILY 01/06/19 Microbiology 01/05/19 21:43 Foot - Left Dorsum Gram Stain - Final ASSESSMENT/PLAN: 68 M w/ pmhx of ESRD (10 years on dialysis, //), HTN, PVD, CHF (EF: 38%), ND presented w/ worsening bilateral LE toe ulcers, worse on the left than the right likely 2/2 to infection v/s chronic foot ulcer #Left Foot ulcer and pain r/o cellulitis vs chronic foot ulcer MRI of the foot ordered- r/o osteo Pain control- morphine, xanax(home med), oxycodone- administer before MRI Abx started- random vanc 17.3- will stop as per ID Podiatry- Dr. Hernandez and ID reports there is no signs of infection and this is likely a chronic ischemic changes Nystatin cream ESR normal As per vascular- betadine in areas of gangrene and gauze b/w toes As per podiatry- CTA of the leg- pt refuses- Will discuss with pt tomorrow Debridement necessary- w/ discuss with Podiatry #Hypercalcemia hold Calcitriol and all vitamin d analogues. f/u PTH- pending #ESRD HD () Nephro consulted- Dr. Turner, to continue () hemodialysis. As per nephro HD tomorrow Pt wants 3 hrs instead of 3.5 hrs 3.5 abf 400, revaclear 300 2 k calcium heparin 1000 bolus #HTN Hold home meds for now #FEN replete PRN low sodium diet # Ppx DVT: SCDs (consider heparin sq?) #Dispo- f/u HD, f/u podiatry and vascular, get results from [facility] Visit type - Emergency Visit Emergency Visit: Yes ED Registration Date: 01/05/19 Care time: The patient presented to the Emergency Department on the above date and was hospitalized for further evaluation of their emergent condition. - New Patient This patient is new to me today: Yes Date on this admission: 01/07/19 - Critical Care Critical Care patient: No - Discharge Referral Referred to [facility] Med P.C.: No ATTENDING PHYSICIAN STATEMENT I saw and evaluated the patient. I reviewed the resident's note and discussed the case with the resident. I agree with the resident's findings and plan as documented. SUBJECTIVE: OBJECTIVE: ASSESSMENT AND PLAN:
[2019-01-06] MEDS ORDERED: GABAPENTIN 300 MG CAPSULE (FP) PO ONE (22:18)
[2019-01-06] MEDS: NYSTATIN 100,000 UNIT/GM TOPICAL CREAM 15 GM TUBE TP SCH (23:05)
[2019-01-07] MEDS: HEPARIN NA (PORCINE) 5,000 UNITS/ML 1ML VIAL SQ SCH ×3 (05:11→23:12)
[2019-01-07] MEDS: traMADol HCL 50 MG TABLET PO PRN (05:28)
[2019-01-07] MEDS: PROCHLORPERAZINE MALEATE 5 MG TABLET PO PRN (05:33)
[2019-01-07] MEDS: ACETAMINOPHEN 325 MG TABLET (FP) PO PRN (07:53)
[2019-01-07] MEDS: TAMSULOSIN HCL 0.4 MG CAP PO SCH ×2 (07:53→23:21)
[2019-01-07 08:40] LABS: EOS % 5.2 % (0-4.5); HEMATOCRIT 35.8 % (35.4-49); HEMOGLOBIN 11.7 GM/dL (11.7-16.9); LYMPH % 16.9 % (8-40); MCH 32.7 pg (25.7-33.7); MCHC 32.8 g/dl (32.0-35.9); MEAN CELL VOLUME 99.8 fl (80-96); MEAN PLT VOLUME 9.2 fl (7.5-11.1); NEUT % 63.9 % (42.8-82.8); PLATELET COUNT 160 K/MM3 (134-434); RBC 3.59 M/mm3 (4.00-5.60); RDW 14.8 % (11.9-15.9); WHITE BLOOD COUNT 8.1 K/mm3 (4.0-10.0)
[2019-01-07 09:16] LABS: ALBUMIN 3.3 g/dl (3.4-5.0); BILIRUBIN,TOTAL 0.6 mg/dL (0.2-1); BLOOD UREA NITROGEN 38.1 mg/dL (7-18); CALCIUM 10.5 mg/dL (8.5-10.1); POTASSIUM 4.7 mmol/L (3.5-5.1); TOT PROT 6.9 g/dl (6.4-8.2)
[2019-01-07 09:23] LABS: CREATININE 9.7 mg/dL (0.55-1.3)
[2019-01-07] MEDS ORDERED: CEFAZOLIN 1 GM in DEXTROSE 5%-WATER - 50 ML IVPB SCH (10:00)
--- NOTE | 2019-01-07 10:41 | PN ---
Progress Note (short form) - Note Progress Note: Vascular surgery I spoke to the vascular team at [place]. they said that pt's circulation is maximized to the best it can. VAscular team does not reccommend intervention on the foot, because the intervention might not heal. No intervention from vascular surgery needed here. Pt has gangrene of right great toe. Stable. No drainage. NO need for CTA CAn do MRI if we are ruling out Osteo. If positive pt can get antibiotics during HD. Will send up Hyperbaric team to do consult. FAmily wants to do HBO Spoke to pt and his at bedside in HD Tommy Tse DO
[2019-01-07 11:54] LABS: HEMATOCRIT 35.3 % (35.4-49); HEMOGLOBIN 11.6 GM/dL (11.7-16.9); MCH 32.3 pg (25.7-33.7); MCHC 32.7 g/dl (32.0-35.9); MEAN CELL VOLUME 98.8 fl (80-96); PLATELET COUNT 160 K/MM3 (134-434); RBC 3.58 M/mm3 (4.00-5.60); RDW 14.7 % (11.9-15.9); WHITE BLOOD COUNT 8.6 K/mm3 (4.0-10.0)
[2019-01-07] MEDS ORDERED: HEPARIN NA (PORCINE) 5,000 UNITS/ML 1ML VIAL IVPUSH ONE (12:00)
[2019-01-07 12:25] LABS: BLOOD UREA NITROGEN 39.5 mg/dL (7-18); CALCIUM 10.5 mg/dL (8.5-10.1); POTASSIUM 4.8 mmol/L (3.5-5.1)
--- NOTE | 2019-01-07 12:40 | EKG ---
Test Reason : Blood Pressure : / mmHG Vent. Rate : 077 BPM Atrial Rate : 077 BPM P-R Int : 160 ms QRS Dur : 094 ms QT Int : 378 ms P-R-T Axes : 048 -07 063 degrees QTc Int : 427 ms SINUS RHYTHM WITH OCCASIONAL PREMATURE VENTRICULAR COMPLEXES INFERIOR INFARCT , AGE UNDETERMINED ANTERIOR INFARCT , AGE UNDETERMINED ABNORMAL ECG NO PREVIOUS ECGS AVAILABLE Confirmed by ROB VELASCO MD ([id number]) on 01/07/2019 12:40:15 PM Referred By: Confirmed By:ROB VELASCO MD
[2019-01-07 12:44] LABS: CREATININE 9.9 mg/dL (0.55-1.3)
--- NOTE | 2019-01-07 13:42 | PN ---
Progress Note (short form) - Note Progress Note: PODIATRY NOTE 68 y/o male with right foot dry gangrenous changes, worrisome concerns for left foot osteo. Podiatry also spoke to surgeon and in agreement with. Dr. Hernandez not they recommend no intervention Flow is maximized but will likely not heal any surgical wounds. From podiatry standpoint patients wound are stable If positive for osteo can treat with abx during dialysis per ID recc Discussed f/u with patient given wounds; i would recc f/u with vascular surgeon in [place] given they are guiding main treatment plan Can follow up with podiatry in wound care center as needed Will follow as needed.
--- NOTE | 2019-01-07 14:03 | PN ---
Progress Note, Physician History of Present Illness: Pt seen and examined at bedside. He is tolerating HD. - Current Medication List Current Medications: Active Medications Acetaminophen (Tylenol -) 650 mg PO Q6H PRN PRN Reason: Fever Or Pain Last Admin: 01/07/19 07:53 Dose: 650 mg Carvedilol (Coreg -) 12.5 mg PO BID [facility] Last Admin: 01/06/19 23:05 Dose: 12.5 mg Heparin Sodium (Porcine) (Heparin -) 5,000 unit SQ TID [facility] Last Admin: 01/07/19 05:11 Dose: Not Given Cefazolin Sodium 1 gm/ (Dextrose) 50 mls @ 100 mls/hr IVPB DAILY [facility] Isosorbide Mononitrate (Imdur -) 30 mg PO DAILY [facility] Last Admin: 01/06/19 09:23 Dose: 30 mg Nystatin (Mycostatin Cream -) 1 applic TP BID [facility] Last Admin: 01/06/19 23:05 Dose: 1 applic Prochlorperazine Maleate (Compazine -) 5 mg PO Q4H PRN PRN Reason: NAUSEA AND/OR VOMITING Last Admin: 01/07/19 05:33 Dose: 5 mg Tamsulosin HCl (Flomax -) 0.4 mg PO BID@0830,2200 [facility] Last Admin: 01/07/19 07:53 Dose: 0.4 mg Tramadol HCl (Ultram -) 50 mg PO Q6H PRN PRN Reason: PAIN LEVEL 6-10 Last Admin: 01/07/19 05:28 Dose: 50 mg - Objective Vital Signs: Vital Signs Temperature 97.2 F L 01/07/19 10:20 Pulse Rate 82 01/07/19 12:10 Respiratory Rate 18 01/07/19 12:10 Blood Pressure 92/60 01/07/19 12:10 O2 Sat by Pulse Oximetry (%) 97 01/06/19 21:00 Constitutional: Yes: Calm Eyes: Yes: Conjunctiva Clear HENT: Yes: Atraumatic Neck: Yes: Supple Cardiovascular: Yes: S1, S2 Respiratory: Yes: CTA Bilaterally Gastrointestinal: Yes: Soft Genitourinary: Yes: WNL Edema: Yes Edema: LLE: 1+, RLE: 1+ Wound/Incision: Yes: Open to air Neurological: Yes: Oriented Psychiatric: Yes: Oriented Labs: CBC, BMP 01/07/19 10:30 01/07/19 10:30 INR, PTT INR 0.97 (0.83-1.09) 01/06/19 07:25 Assessment/Plan Current Medications Generic Name Dose Route Start Last Admin Trade Name Freq PRN Reason Stop Dose Admin Acetaminophen 650 mg 01/06/19 05:54 01/07/19 07:53 Tylenol - PO 650 mg Q6H PRN Administration Fever Or Pain Carvedilol 12.5 mg 01/06/19 10:00 01/06/19 23:05 Coreg - PO 12.5 mg BID [facility] Administration Heparin Sodium (Porcine) 5,000 unit 01/06/19 06:00 01/07/19 05:11 Heparin - SQ Not Given TID [facility] Cefazolin Sodium 1 gm/ 50 mls @ 100 mls/hr 01/07/19 10:00 Dextrose IVPB DAILY [facility] Isosorbide Mononitrate 30 mg 01/06/19 10:00 01/06/19 09:23 Imdur - PO 30 mg DAILY [facility] Administration Nystatin 1 applic 01/06/19 22:00 01/06/19 23:05 Mycostatin Cream - TP 1 applic BID [facility] Administration Prochlorperazine Maleate 5 mg 01/06/19 07:51 01/07/19 05:33 Compazine - PO 5 mg Q4H PRN Administration NAUSEA AND/OR VOMITING Tamsulosin HCl 0.4 mg 01/06/19 08:45 01/07/19 07:53 Flomax - PO 0.4 mg BID@0830,2200 [facility] Administration Tramadol HCl 50 mg 01/06/19 07:51 01/07/19 05:28 Ultram - PO 50 mg Q6H PRN Administration PAIN LEVEL 6-10 Impression 1. esrd 2. htn 3. pvd 4. chf 5. lower ext ulcers Plan - HD today - renal diet - vascular follow up - wound care - pt requests for catheter to be used and he also wants 3 hrs instead of 3.5 hrs - 3.5 abf 400, revaclear 300 2 k calcium heparin 1000 bolus
[2019-01-07] MEDS: CARVEDILOL 12.5 MG TABLET (FP) PO SCH ×2 (14:21→23:21)
[2019-01-07] MEDS: ISOSORBIDE MONONITRATE 30 MG TAB.SR.24H (FP) PO SCH (14:22)
[2019-01-07] MEDS ORDERED: ceFAZolin SODIUM 1 GM VIAL ONE (14:26)
[2019-01-07] MEDS ORDERED: DEXTROSE 5%-WATER - 50 ML IVPB ONE (14:26)
[2019-01-07] MEDS: NYSTATIN 100,000 UNIT/GM TOPICAL CREAM 15 GM TUBE TP SCH ×2 (14:39→23:12)
[2019-01-07] MEDS ORDERED: MORPHINE SULFATE 2 MG/ML VIAL IVPUSH ONE (15:19)
[2019-01-07] MEDS ORDERED: ALPRAZolam 1 MG TABLET PO ONE (15:21)
--- NOTE | 2019-01-07 18:03 | PN ---
Teaching Attending Note Name of Resident: Leslie Huff ATTENDING PHYSICIAN STATEMENT I saw and evaluated the patient. I reviewed the resident's note and discussed the case with the resident. I agree with the resident's findings and plan as documented. SUBJECTIVE: pain in feet. No OSB . seen while in HD OBJECTIVE: NAD , awake, alert, cooperative CV: RRR, 3/6 LSB murmur. Lungs: CTAB Ext : DP is not palpable on both sides . R big toe with eschar on tip of the toe and dusky area surrounding the nail bed L foot with erythema on dorsum, and an ulcer on dorsal of big toe. 1+ pitting edema on legs ASSESSMENT AND PLAN: 68 y/o man with h/o ESRD, OM, PVD s/p stenting in both legs , GERD, HTN, HLP, CO, appendectomy, CCY and BPH and other medical problems who presented with persistent pain in feet and non healing ulcers. 1- dry gangrene of R big toe 2- cellulitis of L foot. 3- ulcer of L foot 4- ESRD 5- h/o HTN 6- h/o PVD 7- hypercalcemia Plan : - appreciate all consultants input - no sugical interventionis planned at this time due to poor circulation and risk of non healing - No need for CTA - MRI pending - blood and wound cx pending - coNT aNCEF - HD today - PTH pending - HBO evaluation - SQ heparin
--- NOTE | 2019-01-07 18:20 | PN ---
Physical Exam: SUBJECTIVE: Patient seen and examined 68 M w/ pmhx of ESRD (10 years on dialysis, //), HTN, PVD, CHF (EF: 38%), [place] presented w/ worsening bilateral LE toe ulcers, worse on the left than the right likely 2/2 to infection v/s chronic foot ulcer. Pt today is in good sate of health. He c/o of b/l foot pain but otherwise as no other issues. No overnight events. Denies f/c/n/v/sob/chest pain. OBJECTIVE: Vital Signs Period Temp Pulse Resp BP Sys/Rodas Pulse Ox Last 24 Hr 97.2 F-98.3 F 60-91 18-20 86-138/54-88 97-97 GENERAL: The patient is awake, alert, and fully oriented, in no acute distress. ENT: Eoropharynx clear without exudates, moist mucous membranes. LUNGS: Breath sounds equal, clear to auscultation bilaterally, no wheezes, no crackles HEART: Regular rate and rhythm, S1, S2 without murmur, rub or gallop. ABDOMEN: Soft, nontender, nondistended, normoactive bowel sounds, no guarding, EXTREMITIES: 1+ pulses-difficult to appreciate due to swelling and tenderness. Warm, well-perfused, no edema. LLE: swollen, warm, erythematous. Could not appreciate any pus today. RLE necrotic looking ulcer/eshcar on first toe. UE: Left side has the fistula for dialysis. Right chest has a dialysis port. NEUROLOGICAL: Cranial nerves II through XII grossly intact. PSYCH: Normal mood, normal affect. SKIN: Warm, Laboratory Results - last 24 hr CBC,CMP WBC 8.6 K/mm3 (4.0-10.0) 01/07/19 10:30 RBC 3.58 M/mm3 (4.00-5.60) L 01/07/19 10:30 Hgb 11.6 GM/dL (11.7-16.9) L 01/07/19 10:30 Hct 35.3 % (35.4-49) L 01/07/19 10:30 MCV 98.8 fl (80-96) H 01/07/19 10:30 MCH 32.3 pg (25.7-33.7) 01/07/19 10:30 MCHC 32.7 g/dl (32.0-35.9) 01/07/19 10:30 RDW 14.7 % (11.9-15.9) 01/07/19 10:30 Plt Count 160 K/MM3 (134-434) 01/07/19 10:30 MPV 9.0 fl (7.5-11.1) 01/07/19 10:30 Absolute Neuts (auto) 5.2 K/mm3 (1.5-8.0) 01/07/19 07:12 Neutrophils % 63.9 % (42.8-82.8) 01/07/19 07:12 Lymphocytes % 16.9 % (8-40) D 01/07/19 07:12 Monocytes % 13.0 % (3.8-10.2) H 01/07/19 07:12 Eosinophils % 5.2 % (0-4.5) H 01/07/19 07:12 Basophils % 1.0 % (0-2.0) 01/07/19 07:12 Nucleated RBC % 0 % (0-0) 01/07/19 07:12 ESR 36 mm/hr (0-20) H 01/06/19 10:00 Sodium 134 mmol/L (136-145) L 01/07/19 10:30 Potassium 4.8 mmol/L (3.5-5.1) 01/07/19 10:30 Chloride 96 mmol/L (98-107) L 01/07/19 10:30 Carbon Dioxide 27 mmol/L (21-32) 01/07/19 10:30 Anion Gap 11 MMOL/L (8-16) 01/07/19 10:30 BUN 39.5 mg/dL (7-18) H 01/07/19 10:30 Creatinine 9.9 mg/dL (0.55-1.3) H* 01/07/19 10:30 Est GFR (CKD-EPI)AfAm 5.62 01/07/19 10:30 Est GFR (CKD-EPI)NonAf 4.85 01/07/19 10:30 Random Glucose 104 mg/dL (74-106) 01/07/19 10:30 Lactic Acid 1.1 mmol/L (0.4-2.0) 01/05/19 20:55 Calcium 10.5 mg/dL (8.5-10.1) H 01/07/19 10:30 Phosphorus 5.6 mg/dL (2.5-4.9) H 01/06/19 07:25 Magnesium 2.3 mg/dL (1.8-2.4) 01/06/19 07:25 Total Bilirubin 0.6 mg/dL (0.2-1) 01/07/19 07:12 AST 12 U/L (15-37) L 01/07/19 07:12 ALT 13 U/L (13-61) 01/07/19 07:12 Alkaline Phosphatase 69 U/L (45-117) 01/07/19 07:12 C-Reactive Protein 2.0 MG/DL (0.00-0.3) H 01/06/19 07:25 Total Protein 6.9 g/dl (6.4-8.2) 01/07/19 07:12 Albumin 3.3 g/dl (3.4-5.0) L 01/07/19 07:12 PTH Intact 246 pg/mL (15-65) H 01/06/19 07:25 Active Medications Current Medications Acetaminophen (Tylenol -) 650 mg PO Q6H PRN PRN Reason: Fever Or Pain Last Admin: 01/07/19 07:53 Dose: 650 mg Carvedilol (Coreg -) 12.5 mg PO BID [facility] Last Admin: 01/07/19 14:21 Dose: Not Given Heparin Sodium (Porcine) (Heparin -) 5,000 unit SQ TID [facility] Last Admin: 01/07/19 14:29 Dose: Not Given Cefazolin Sodium 1 gm/ (Dextrose) 50 mls @ 100 mls/hr IVPB DAILY [facility] Last Admin: 01/07/19 14:29 Dose: 100 mls/hr Isosorbide Mononitrate (Imdur -) 30 mg PO DAILY [facility] Last Admin: 01/07/19 14:22 Dose: Not Given Nystatin (Mycostatin Cream -) 1 applic TP BID [facility] Last Admin: 01/07/19 14:39 Dose: 1 applic Prochlorperazine Maleate (Compazine -) 5 mg PO Q4H PRN PRN Reason: NAUSEA AND/OR VOMITING Last Admin: 01/07/19 05:33 Dose: 5 mg Tamsulosin HCl (Flomax -) 0.4 mg PO BID@0830,2200 MIGUEL Last Admin: 01/07/19 07:53 Dose: 0.4 mg Tramadol HCl (Ultram -) 50 mg PO Q6H PRN PRN Reason: PAIN LEVEL 6-10 Last Admin: 01/07/19 05:28 Dose: 50 mg Home Medications Medication Instructions Recorded Acetaminophen [Tylenol 1 tab PO Q8H PRN 12/29/18 .Extra-Strength -] Albuterol Sulfate Inhaler - 2 puff IH Q4H PRN 12/29/18 [Ventolin HFA Inhaler -] Alprazolam [Xanax] 1 mg PO HS 12/29/18 Budesonide/Formeterol Fumarate 2 puff IH BID PRN 12/29/18 [SYMBICORT 160/4.5mcg -] Calcitriol [Calcitriol -] 0.25 mg PO DAILY 12/29/18 Carvedilol [Coreg -] 12.5 mg PO BID 12/29/18 Gabapentin [Neurontin -] 300 mg PO DAILY 12/29/18 Isosorbide Mononitrate [Isosorbide 30 mg PO DAILY 12/29/18 Mononitrate ER] Naproxen Sodium [Aleve] 2 tab PO DAILY 12/29/18 Simvastatin 40 mg PO DAILY 12/29/18 Tamsulosin HCl [Flomax -] 0.4 mg PO BID 12/29/18 Aspirin [ASA -] 81 mg PO DAILY 01/06/19 Microbiology 01/05/19 21:43 Foot - Left Dorsum Gram Stain - Final 01/05/19 21:43 Foot - Left Dorsum Wound Culture - Preliminary 01/05/19 20:55 Blood - Peripheral Venous Blood Culture - Preliminary NO GROWTH OBTAINED AFTER 24 HOURS, INCUBATION TO CONTINUE FOR 4 DAYS. 01/05/19 20:55 Blood - Peripheral Venous Blood Culture - Preliminary NO GROWTH OBTAINED AFTER 24 HOURS, INCUBATION TO CONTINUE FOR 4 DAYS. ASSESSMENT/PLAN: 68 M w/ pmhx of ESRD (10 years on dialysis, //), HTN, PVD, CHF (EF: 38%), [place] presented w/ worsening bilateral LE toe ulcers, worse on the left than the right likely 2/2 to infection v/s chronic foot ulcer #Left Foot ulcer and pain likely 2/2 cellulitis vs chronic foot ulcer Pain control with morphine, xanax(home med), tramadol- administer before MRI Podiatry and vascular suggests no intervention as of now. Due to lack of adequate blood supply, any wound from surgery would not heal. Pt's foot is stable. Recommends f/u outpt We will do an MRI of the foot to r/o osteomyelitis Pt is still refusing MRI, will try tomorrow We started Ancef 1gm to cover cellulitis of the foot #ESRD Dr. Turner wants to continue () hemodialysis. Pt was dialyzed today #HTN Hold home meds for now- coreg 12.5 mg bid, imdur 30mg daily #FEN replete PRN low sodium diet # Ppx DVT: heparin 5000 TID #Dispo- f/u HD, f/u podiatry and vascular, get results from [facility] Visit type - Emergency Visit Emergency Visit: Yes ED Registration Date: 01/05/19 Care time: The patient presented to the Emergency Department on the above date and was hospitalized for further evaluation of their emergent condition. - New Patient This patient is new to me today: Yes Date on this admission: 01/07/19 - Critical Care Critical Care patient: No - Discharge Referral Referred to [facility] No ATTENDING PHYSICIAN STATEMENT I saw and evaluated the patient. I reviewed the resident's note and discussed the case with the resident. I agree with the resident's findings and plan as documented. SUBJECTIVE: OBJECTIVE: ASSESSMENT AND PLAN:
[2019-01-07 23:17] VITALS: TEMP 99
[2019-01-07] MEDS ORDERED: ONDANSETRON 4 MG TABLET PO ONE (23:20)
[2019-01-08] MEDS ORDERED: NITROGLYCERIN SUBLINGUAL 1/150 0.4 MG TAB SL ONE ×3 (00:16→04:36)
--- NOTE | 2019-01-08 00:25 | RAPID ---
Physical Examination Vital Signs: Vital Signs Temperature 99.0 F 01/07/19 22:00 Pulse Rate 115 H 01/07/19 22:00 Respiratory Rate 22 H 01/07/19 22:00 Blood Pressure 127/76 01/07/19 22:00 O2 Sat by Pulse Oximetry (%) 97 01/07/19 09:00 Labs: CBC, BMP 01/07/19 10:30 01/07/19 10:30 Rapid Response - Rapid Response Assessment: A rapid response was called around midnight, the rapid response team responded immediately. Mr. Cantu was found in his room laying comfortably in his bed, not in any acute distress, complaining of chest pain which had since resolved. Per the patient, his chest pains began around 10 pm and he describes it as "chest tightness" in the substernal area with some radiation to his L arm. He rates the pain as 5/10 and said he also had an episode of vomiting. An EKG was obtained prior to the arrival of the rapid response team and it showed some new TWI in lead I in addition to more prominent TWI in the lateral leads. New EKG concerning for STEMI. Pt was requesting Nitro on arrival of the rapid response team as he said he has felt pain like this previously and nitro helps. Physical Exam Vitals : BP 142/85 HR 120 MAP 82, O2 sat 92-94 General: Pt was comfortable in bed, said CP had resolved, breathing comfortably on 2LNC. HEENT: NCAT, PEERL, dry mucous membranes Cardiac: tachycardic, regular rhythm, s1, s2 Lungs: clear to auscultation bilaterally in the anterior and posterior lung marlow Abd: normal BS, no tenderness to palpation Ext: LE with bilateral foot wounds A+P 68 y/o man with h/o ESRD, OM, PVD s/p stenting in both legs , GERD, HTN, HLP, MS, appendectomy, CCY and BPH and other medical problems who presented with persistent pain in feet and non healing ulcers now with new chest pain and ECG findings concerning for STEMI. - cardiology consulted, Dr. Kang, appreciate recommendations - ASA 324 - Unfractionated Heparin Drip, pt has known colovesicular fistula that is known to bleed however benefits of AC outweigh risks of bleed in this case. Will stop drip for any overt bleeding. - Urgent transfer to [facility] for cath: - case discussed with Dr. Nava, an pipe connector at [facility], pt to be transferred to [facility] under the care of Dr. Leslie, the cardiology attending, and Dr. Rich, the venereal disease investigator. Pt will be admitted to telemetry floor, no need to activate cardio [facility] at this time.
[2019-01-08] MEDS ORDERED: ASPIRIN 325 MG ENTERIC COATED TABLET (FP) PO ONE (00:40)
[2019-01-08] MEDS ORDERED: HEPARIN NA (PORCINE) 5,000 UNITS/ML 1ML VIAL IVPUSH PRN ×2 (00:43)
[2019-01-08] MEDS ORDERED: HEPARIN - 25,000 UNIT in SODIUM CHLORIDE 495 ML IV SCH (00:45)
[2019-01-08 01:12] VITALS: BP 103/68; PULSE 113
[2019-01-08] MEDS ORDERED: traMADol HCL 50 MG TABLET PO PRN (01:12)
[2019-01-08] MEDS ORDERED: PROCHLORPERAZINE MALEATE 5 MG TABLET PO PRN (01:12)
[2019-01-08] MEDS ORDERED: ACETAMINOPHEN 325 MG TABLET (FP) PO PRN (01:12)
[2019-01-08 01:31] LABS: POTASSIUM 4.4 mmol/L (3.5-5.1)
[2019-01-08] MEDS ORDERED: HEPARIN NA (PORCINE) 5,000 UNITS/ML 1ML VIAL SQ SCH (06:00)
[2019-01-08] MEDS ORDERED: TAMSULOSIN HCL 0.4 MG CAP PO SCH (08:30)
[2019-01-08] MEDS ORDERED: ISOSORBIDE MONONITRATE 30 MG TAB.SR.24H (FP) PO SCH (10:00)
[2019-01-08] MEDS ORDERED: CEFAZOLIN 1 GM in DEXTROSE 5%-WATER - 50 ML IVPB SCH (10:00)
[2019-01-08] MEDS ORDERED: CARVEDILOL 12.5 MG TABLET (FP) PO SCH (10:00)
[2019-01-08] MEDS ORDERED: NYSTATIN 100,000 UNIT/GM TOPICAL CREAM 15 GM TUBE TP SCH (10:00)
--- NOTE | 2019-01-08 15:55 | PN ---
Physical Exam: SUBJECTIVE: Patient seen and examined 68 M w/ pmhx of ESRD (10 years on dialysis, ), HTN, PVD, CHF (EF: 38%), [place] presented w/ worsening bilateral LE toe ulcers, worse on the left than the right likely 2/2 to infection v/s chronic foot ulcer. Pt Transferred OBJECTIVE: Vital Signs Period Temp Pulse Resp BP Sys/Rodas Pulse Ox Last 24 Hr 97.1 F-99.0 F 89-115 20-22 103-127/64-76 98-98 GENERAL: The patient is awake, alert, and fully oriented, in no acute distress. ENT: Eoropharynx clear without exudates, moist mucous membranes. LUNGS: Breath sounds equal, clear to auscultation bilaterally, no wheezes, no crackles HEART: Regular rate and rhythm, S1, S2 without murmur, rub or gallop. ABDOMEN: Soft, nontender, nondistended, normoactive bowel sounds, no guarding, EXTREMITIES: 1+ pulses-difficult to appreciate due to swelling and tenderness. Warm, well-perfused, no edema. LLE: swollen, warm, erythematous. Could not appreciate any pus today. RLE necrotic looking ulcer/eshcar on first toe. UE: Left side has the fistula for dialysis. Right chest has a dialysis port. NEUROLOGICAL: Cranial nerves II through XII grossly intact. PSYCH: Normal mood, normal affect. SKIN: Warm, Laboratory Results - last 24 hr 01/07/19 01/07/19 01/08/19 10:30 11:26 00:34 Potassium 4.4 Magnesium 2.0 Creatine Kinase 58 Troponin I 0.10 H Hep Bs Antigen Negative Hep C Ab Diagnostic <0.1 ASSESSMENT/PLAN: 68 M w/ pmhx of ESRD (10 years on dialysis, ), HTN, PVD, CHF (EF: 38%), [place] presented w/ worsening bilateral LE toe ulcers, worse on the left than the right likely 2/2 to infection v/s chronic foot ulcer. Pt was found to have cellulitis of his left foot s/p an ulcer he had for a long time. The ulcer was draining on admission. Pt was started on abx and his symptoms began to improve. Pt refused imaging due to pain form laying down. On day 3 of admission, pt was found to have a STEMI for which rapid response was called, and [employer] communication manager transferred pt for a Cardiac cath. Pt was also being dialyzed here. Pt was transferred Foot x ray-negative #Left Foot ulcer and pain likely 2/2 cellulitis vs chronic foot ulcer Pain control with morphine, xanax(home med), tramadol- administer before MRI Podiatry and vascular suggests no intervention as of now. Due to lack of adequate blood supply, any wound from surgery would not heal. Pt's foot is stable. We will do an MRI of the foot to r/o osteomyelitis We started Ancef 1gm to cover cellulitis of the foot Visit type - Emergency Visit Emergency Visit: Yes ED Registration Date: 01/05/19 Care time: The patient presented to the Emergency Department on the above date and was hospitalized for further evaluation of their emergent condition. - New Patient This patient is new to me today: Yes Date on this admission: 01/08/19 - Critical Care Critical Care patient: No - Discharge Referral Referred to [facility] No ATTENDING PHYSICIAN STATEMENT I saw and evaluated the patient. I reviewed the resident's note and discussed the case with the resident. I agree with the resident's findings and plan as documented. SUBJECTIVE: OBJECTIVE: ASSESSMENT AND PLAN:
--- NOTE | 2019-01-12 16:31 | EKG ---
Test Reason : Blood Pressure : / mmHG Vent. Rate : 110 BPM Atrial Rate : 110 BPM P-R Int : 148 ms QRS Dur : 088 ms QT Int : 330 ms P-R-T Axes : 051 -03 092 degrees QTc Int : 446 ms SINUS TACHYCARDIA WITH OCCASIONAL PREMATURE VENTRICULAR COMPLEXES CANNOT RULE OUT INFERIOR INFARCT , AGE UNDETERMINED ABNORMAL ECG WHEN COMPARED WITH ECG OF 08-JAN-2019 00:02, PREMATURE VENTRICULAR COMPLEXES ARE NOW PRESENT CRITERIA FOR ANTERIOR INFARCT ARE NO LONGER PRESENT ST NO LONGER ELEVATED IN ANTERIOR LEADS Confirmed by MD Nasir, Patrick ([id number]) on 01/12/2019 4:30:40 PM Referred By: Confirmed By:Patrick Best MD
--- NOTE | 2019-01-12 16:31 | EKG ---
Test Reason : Blood Pressure : / mmHG Vent. Rate : 115 BPM Atrial Rate : 115 BPM P-R Int : 144 ms QRS Dur : 090 ms QT Int : 320 ms P-R-T Axes : 055 002 134 degrees QTc Int : 442 ms SINUS TACHYCARDIA ANTERIOR INFARCT (CITED ON OR BEFORE 06-JAN-2019) T WAVE ABNORMALITY, CONSIDER LATERAL ISCHEMIA ACUTE ID / STEMI ABNORMAL ECG WHEN COMPARED WITH ECG OF 06-JAN-2019 00:16, SIGNIFICANT CHANGES HAVE OCCURRED Confirmed by MD Nasir, Patrick ([id number]) on 01/12/2019 4:30:55 PM Referred By: Confirmed By:Patrick Best MD
== END 2019-01-08 05:07 | disposition short-term general hospital (02) | DRG 592 ==
LOC: JER 17:27 → JERBED 22:52 → J5S 01-06 01:01 → J4S 01-08 00:58
PROVIDERS: ADMIT Internal Medicine; ATTEND Internal Medicine
PROC: 5A1D70Z Performance of Urinary Filtration, Intermittent, Less than 6 Hours Per Day (ICD-10-PCS; principal; 2019-01-07)
DX: L97.528 Non-pressure chronic ulcer of other part of left foot with other specified severity (principal); I21.3 ST elevation (STEMI) myocardial infarction of unspecified site; N18.6 End stage renal disease; I96 Gangrene, not elsewhere classified; L03.116 Cellulitis of left lower limb; I13.2 Hypertensive heart and chronic kidney disease with heart failure and with stage 5 chronic kidney disease, or end stage renal disease; L97.518 Non-pressure chronic ulcer of other part of right foot with other specified severity; N40.0 Benign prostatic hyperplasia without lower urinary tract symptoms; E83.52 Hypercalcemia; I73.9 Peripheral vascular disease, unspecified; E78.5 Hyperlipidemia, unspecified; B95.7 Other staphylococcus as the cause of diseases classified elsewhere; I50.9 Heart failure, unspecified; Z99.2 Dependence on renal dialysis
CPT/HCPCS: 36415; 71045-TC-FY; 73630-TC-LT; 73630-TC-RT-FY; 80048; 80053; 82550; 83605; 83735; 83970; 84100; 84132; 84484; 85025; 85027; 85610; 85651; 85730; 86140; 86707; 86803; 86850; 86900; 86901; 87040; 87070; 87205; 87340; 87350; 93005; 93010; 99283-25; G0463-25; G0480; J1644; J7030